=== PATIENT | female | born 1955 | race Caucasian/White ===

== ENCOUNTER → 2016-08-19 | Outpatient (CLI) | payer OTHER ==
[~2016-08-19] MED LIST: ASPIR-LOW81 MG PO; ATARAX25 MG PO; CIPRO250 MG PO; CIPROFLOXACIN500 MG PO; CYCLOBENZAPRINE10 MG PO; DAYPRO600 M1 PO; EFFEXOR-XR150 MG PO; EFFEXOR75 MG PO; ENALAPRIL2.5 MG; FLEXERIL10 MG PO; GLUCOPHAGE XR500 MG PO; HUMULIN R U-100 U/ML SC; JANUVIA100 MG; KAPIDEX60 MG; LIDOCAINE5% T; LYRICA150 MG PO; LYRICA300 MG PO; LYRICA75 MG PO; MAREPA1200 MG PO; METHOCARBAMOL500 M1 PO; NOVOLOG 70/30 M10 ML SC; NOVOLOG 701 UNIT/0.0; NOVOLOG MI100 UNIT/1 SQ; PERCOCET 325 MG1 TA7 PO; PERCOCET 325 MG1 TA8 PO; PLAVIX75 MG; QUALITY CHOICE; QUETIAPINE FUMA25 M2 PO; REGLAN5 MG; ROBAXIN-750750 MG PO; SIMVASTATIN10 MG PO; TIZANIDINE4 MG; TRAZODONE50 MG PO; TRICOR48 MG PO; ULTRAM50 MG PO; VASOTEC2.5 MG PO; VENLAFAXINE HY150 M2 PO; VENLAFAXINE75 MG PO; XANAX1 MG PO; XANAX2 MG; XANAX2 MG PO; ZOCOR40 MG; ZOFRAN ODT4 MG SL; Zofran4 MG PO
[2016-08-19 14:47] LABS: BILIRUBIN NEGATIVE (NEGATIVE); BLOOD NEGATIVE (NEGATIVE); CLARITY SL CLOUDY (CLEAR); COLOR YELLOW (YELLOW); GLUCOSE NEGATIVE (NEGATIVE); KETONE NEGATIVE (NEGATIVE); LEUKO ESTERASE 1+ (NEGATIVE); NITRITE POSITIVE (NEGATIVE); PROTEIN NEGATIVE (NEGATIVE); SPECIFIC GRAVITY 1.025 (1.005-1.030); UROBILINOGEN 0.2 E.U./dl (0.2-1.0)
[2016-08-19 14:55] LABS: BASO % 0.3 % (0.0-1.0); EOS # 0.1 10*3/uL (0.0-0.4); EOS % 0.7 % (1.0-4.0); HEMATOCRIT 41.8 % (37.0-47.0); HEMOGLOBIN 13.2 g/dl (12.0-16.0); LYMPH # 2.8 10*3/uL (1.3-4.4); LYMPH % 27.8 % (27.0-41.0); MEAN CELL VOLUME 81.8 fl (81.0-99.0); MEAN CORPUSCULAR HGB 25.8 pg (27.0-31.0); MEAN CORPUSCULAR HGB CONC 31.6 g/dl (33.0-37.0); MEAN PLATELET VOLUME 8.8 fl (9.6-12.3); MONO # 0.6 10*3/uL (0.1-1.0); MONO % 5.6 % (3.0-9.0); NEUT # 6.5 10*3/uL (2.3-7.9); NEUT % 65.3 % (47.0-73.0); PLATELET COUNT AUTOMATED 271 10*3/uL (130-400); RED BLOOD COUNT 5.11 10*6/uL (4.10-5.10); RED CELL DISTRI WIDTH 14.2 % (0-14.5)
[2016-08-19 15:02] LABS: BACTERIA 3+; RBC 0-2 rbc/hpf (0-2); WBC 21-30 wbc/hpf (0-5)
[2016-08-19 15:12] LABS: ALBUMIN 3.8 gm/dl (3.1-4.5); ALKALINE PHOSPHATASE 75 U/L (45-117); BILIRUBIN, TOTAL 0.3 mg/dl (0.2-1.0); BUN 23 mg/dl (7-24); CARBON DIOXIDE 30 mmol/L (21-32); CHLORIDE 103 mmol/L (98-107); EST GLOM FILT AFRICAN AMERICAN > 60 ml/min; GLUCOSE 170 mg/dL (65-99); POTASSIUM 4.3 mmol/L (3.5-5.1); PROTHROMBIN TIME 10.5 SECONDS (9.0-12.4); SGOT/AST 16 IU/L (3-35); SGPT/ALT 19 U/L (12-78); SODIUM 139 mmol/L (136-145); TOTAL PROTEIN 7.2 gm/dL (6.4-8.2)
== END | disposition home or self-care (01) ==
LOC: US 12:30 → LAB 12:36
PROVIDERS: Physician Assistant
DX: Z01.818 Encounter for other preprocedural examination (principal); E11.9 Type 2 diabetes mellitus without complications; R09.89 Other specified symptoms and signs involving the circulatory and respiratory systems; I73.9 Peripheral vascular disease, unspecified; M25.569 Pain in unspecified knee; M25.469 Effusion, unspecified knee; M79.609 Pain in unspecified limb; M79.89 Other specified soft tissue disorders; Z79.899 Other long term (current) drug therapy; Z51.81 Encounter for therapeutic drug level monitoring

== ENCOUNTER 2016-08-30 12:42 | Emergency (ER) | payer OTHER ==
[~2016-08-30] VITALS: Ht 152.4 cm; Wt 90.7 kg
[~2016-08-30 12:42] MED LIST changes: -ZOFRAN ODT4 MG SL
[2016-08-30 12:47] VITALS: BP 111/66
[2016-08-30 13:19] LABS: BASO % 0.2 % (0.0-1.0); EOS % 0.4 % (1.0-4.0); HEMATOCRIT 43.6 % (37.0-47.0); HEMOGLOBIN 14.1 g/dl (12.0-16.0); LYMPH # 2.2 10*3/uL (1.3-4.4); LYMPH % 24.1 % (27.0-41.0); MEAN CELL VOLUME 80.1 fl (81.0-99.0); MEAN CORPUSCULAR HGB 25.9 pg (27.0-31.0); MEAN CORPUSCULAR HGB CONC 32.3 g/dl (33.0-37.0); MEAN PLATELET VOLUME 9.1 fl (9.6-12.3); MONO # 0.5 10*3/uL (0.1-1.0); MONO % 5.4 % (3.0-9.0); NEUT # 6.3 10*3/uL (2.3-7.9); NEUT % 69.7 % (47.0-73.0); PLATELET COUNT AUTOMATED 279 10*3/uL (130-400); RED BLOOD COUNT 5.44 10*6/uL (4.10-5.10); RED CELL DISTRI WIDTH 14.4 % (0-14.5); WHITE BLOOD COUNT 9.1 10*3/uL (4.8-10.8)
[2016-08-30 13:33] LABS: ALKALINE PHOSPHATASE 77 U/L (45-117); BILIRUBIN, TOTAL 0.4 mg/dl (0.2-1.0); BUN 19 mg/dl (7-24); CARBON DIOXIDE 24 mmol/L (21-32); CHLORIDE 107 mmol/L (98-107); EST GLOM FILT AFRICAN AMERICAN > 60 ml/min; GLUCOSE 157 mg/dL (65-99); POTASSIUM 4.4 mmol/L (3.5-5.1); SGOT/AST 21 IU/L (3-35); SGPT/ALT 31 U/L (12-78); SODIUM 142 mmol/L (136-145); TOTAL PROTEIN 7.7 gm/dL (6.4-8.2)
[2016-08-30 15:06] LABS: BILIRUBIN NEGATIVE (NEGATIVE); BLOOD NEGATIVE (NEGATIVE); CLARITY CLEAR (CLEAR); COLOR YELLOW (YELLOW); GLUCOSE NEGATIVE (NEGATIVE); KETONE NEGATIVE (NEGATIVE); LEUKO ESTERASE NEGATIVE (NEGATIVE); NITRITE NEGATIVE (NEGATIVE); PH 7.5 (5.0-9.0); PROTEIN NEGATIVE (NEGATIVE)
[2016-08-30 15:14] LABS: RBC 0-2 rbc/hpf (0-2); URINE REFLEX COMMENT YES (NO)
[2016-08-30] MEDS ORDERED: ZOFRAN ODT4 MG SL (15:38)
== END 2016-08-30 15:02 | disposition home or self-care (01) ==
LOC: ED 12:42
PROVIDERS: Nurse Practitioner Family
DX: R10.9 Unspecified abdominal pain (principal); R11.2 Nausea with vomiting, unspecified; E11.9 Type 2 diabetes mellitus without complications; I10 Essential (primary) hypertension; Z86.73 Personal history of transient ischemic attack (TIA), and cerebral infarction without residual deficits; Z87.19 Personal history of other diseases of the digestive system; Z88.6 Allergy status to analgesic agent; Z88.8 Allergy status to other drugs, medicaments and biological substances; Z79.4 Long term (current) use of insulin

== ENCOUNTER 2016-12-28 10:51 | Emergency (ER) | payer OTHER ==
[~2016-12-28] VITALS: Ht 154.9 cm; Wt 90.7 kg
[~2016-12-28 10:51] MED LIST changes: +ZOFRAN ODT4 MG SL
[2016-12-28 11:03] VITALS: BP 106/58
[2016-12-28] MEDS ORDERED: ASPIRIN81 M1 PO (11:09)
[2016-12-28] MEDS ORDERED: LIDODERM 5% PATC1 EA PO (11:12)
[2016-12-28] MEDS ORDERED: TRULICITY0.75 MG/0. SC (11:23)
[2016-12-28] MEDS ORDERED: POTASSIUM GLUC550 M1 PO (11:23)
[2016-12-28] MEDS ORDERED: PRILOSEC10 MG/Pack PO (11:24)
[2016-12-28] MEDS ORDERED: VITAMIN D50000 UNIT PO (11:24)
[2016-12-28] MEDS ORDERED: EVZIO2 MG/0.4 M IJ (11:25)
== END 2016-12-28 13:28 | disposition home or self-care (01) ==
LOC: ED 10:51
DX: G89.29 Other chronic pain (principal); M54.5 Low back pain; Z88.6 Allergy status to analgesic agent; Z88.8 Allergy status to other drugs, medicaments and biological substances; Z79.82 Long term (current) use of aspirin; Z90.49 Acquired absence of other specified parts of digestive tract

== ENCOUNTER → 2017-01-26 | Outpatient (CLI) | payer OTHER ==
[~2017-01-26] MED LIST changes: +ASPIRIN81 M1 PO; +EVZIO2 MG/0.4 M IJ; +LIDODERM 5% PATC1 EA PO; +POTASSIUM GLUC550 M1 PO; +PRILOSEC10 MG/Pack PO; +TRULICITY0.75 MG/0. SC; +VITAMIN D50000 UNIT PO
== END | disposition home or self-care (01) ==
LOC: MAMMO 13:36
DX: Z12.31 Encounter for screening mammogram for malignant neoplasm of breast (principal)

== ENCOUNTER → 2017-02-16 | Outpatient (CLI) | payer OTHER ==
[2017-02-16 10:27] LABS: BASO % 0.4 % (0.0-1.0); EOS # 0.2 10*3/uL (0.0-0.4); HEMATOCRIT 39.8 % (37.0-47.0); HEMOGLOBIN 12.5 g/dl (12.0-16.0); LYMPH # 2.6 10*3/uL (1.3-4.4); LYMPH % 33.1 % (27.0-41.0); MEAN CELL VOLUME 79.4 fl (81.0-99.0); MEAN CORPUSCULAR HGB CONC 31.4 g/dl (33.0-37.0); MEAN PLATELET VOLUME 8.4 fl (9.6-12.3); MONO # 0.5 10*3/uL (0.1-1.0); MONO % 5.8 % (3.0-9.0); NEUT # 4.7 10*3/uL (2.3-7.9); NEUT % 58.6 % (47.0-73.0); PLATELET COUNT AUTOMATED 236 10*3/uL (130-400); RED BLOOD COUNT 5.01 10*6/uL (4.10-5.10); RED CELL DISTRI WIDTH 14.5 % (0-14.5)
[2017-02-16 10:56] LABS: ALBUMIN 3.4 gm/dl (3.1-4.5); ALKALINE PHOSPHATASE 81 U/L (45-117); BILIRUBIN, TOTAL 0.4 mg/dl (0.2-1.0); BUN 19 mg/dl (7-24); CARBON DIOXIDE 27 mmol/L (21-32); CHLORIDE 105 mmol/L (98-107); EST GLOM FILT AFRICAN AMERICAN > 60 ml/min; GLUCOSE 134 mg/dL (65-99); SGOT/AST 25 IU/L (3-35); SGPT/ALT 31 U/L (12-78); SODIUM 141 mmol/L (136-145)
[2017-02-16 11:58] LABS: HEMOGLOBIN A1c 7.4 % (4.8-5.6)
== END | disposition home or self-care (01) ==
LOC: LAB 10:08
PROVIDERS: Family Medicine
DX: E55.9 Vitamin D deficiency, unspecified (principal); Z79.899 Other long term (current) drug therapy

== ENCOUNTER → 2017-03-11 | Outpatient (CLI) | payer OTHER | END | disposition home or self-care (01) | LOC: MRI 11:00 | DX: M54.16 Radiculopathy, lumbar region (principal) ==

== ENCOUNTER → 2017-05-26 | Outpatient (CLI) | payer OTHER | END | disposition home or self-care (01) | LOC: RAD 10:28 | DX: M25.532 Pain in left wrist (principal) ==

== ENCOUNTER → 2017-06-09 | Outpatient (CLI) | payer OTHER | END | disposition home or self-care (01) | LOC: MRI 06-06 13:00 | DX: M48.02 Spinal stenosis, cervical region (principal); M50.220 Other cervical disc displacement, mid-cervical region, unspecified level; M54.12 Radiculopathy, cervical region; M25.78 Osteophyte, vertebrae ==

== ENCOUNTER 2017-10-12 04:07 | Emergency (ER) | payer OTHER ==
[~2017-10-12] VITALS: Ht 157.4 cm; Wt 90.7 kg
--- NOTE | ~2017-10-12 | EKG ---
[place], [place] ELECTROCARDIOGRAM REPORT NAME: ODILON CONN UNIT #: [id number] ROOM: DOCTOR: ENOC GRAHAM MD BIRTHDATE: [birth year] DOS: 10/12/2017 TIME: 0422 hours. Normal sinus rhythm at 67 beats per minute. The tracing is normal. No previous tracing is available for comparison. ENOC GRAHAM MD CM:EKGRPT:ELECTROCARDIOGRAM REPORT [id number] ENOC GRAHAM MD
[2017-10-12 04:34] LABS: BASO % 0.3 % (0.0-1.0); EOS # 0.1 10*3/uL (0.0-0.4); EOS % 0.8 % (1.0-4.0); HEMATOCRIT 42.1 % (37.0-47.0); HEMOGLOBIN 13.2 g/dl (12.0-16.0); LYMPH # 2.7 10*3/uL (1.3-4.4); LYMPH % 41.8 % (27.0-41.0); MEAN CELL VOLUME 85.6 fl (81.0-99.0); MEAN CORPUSCULAR HGB 26.8 pg (27.0-31.0); MEAN CORPUSCULAR HGB CONC 31.4 g/dl (33.0-37.0); MEAN PLATELET VOLUME 8.9 fl (9.6-12.3); MONO # 0.6 10*3/uL (0.1-1.0); MONO % 9.5 % (3.0-9.0); NEUT % 46.8 % (47.0-73.0); PLATELET COUNT AUTOMATED 184 10*3/uL (130-400); RED BLOOD COUNT 4.92 10*6/uL (4.10-5.10); RED CELL DISTRI WIDTH 15.5 % (0-14.5); WHITE BLOOD COUNT 6.4 10*3/uL (4.8-10.8)
[2017-10-12 04:44] LABS: ACT PARTIAL THROMBO TIME 21.1 SECONDS (20.8-31.5); INTERNATIONAL NORM RATIO 0.9 (2.0-3.5)
[2017-10-12 04:51] LABS: ALBUMIN 3.3 gm/dl (3.1-4.5); ALKALINE PHOSPHATASE 90 U/L (45-117); BUN 19 mg/dl (7-24); CHLORIDE 106 mmol/L (98-107); CREATININE 0.74 mg/dL (0.55-1.02); SGOT/AST 32 IU/L (3-35); SGPT/ALT 50 U/L (12-78); SODIUM 141 mmol/L (136-145); TOTAL PROTEIN 6.5 gm/dL (6.4-8.2)
[2017-10-12 04:55] LABS: TROPONIN I < 0.015 ng/ml (<0.045)
[2017-10-12 05:00] VITALS: BP 132/52
== END 2017-10-12 05:27 | disposition short-term general hospital (02) ==
LOC: ED 04:07
PROVIDERS: Emergency Medicine Emergency Medical Services
DX: I63.9 Cerebral infarction, unspecified (principal); E11.9 Type 2 diabetes mellitus without complications; Z79.4 Long term (current) use of insulin; Z88.6 Allergy status to analgesic agent; Z88.8 Allergy status to other drugs, medicaments and biological substances; Z79.899 Other long term (current) drug therapy

== ENCOUNTER → 2017-11-14 | Outpatient (CLI) | payer OTHER | END | disposition home or self-care (01) | LOC: RAD 11:54 | DX: M47.26 Other spondylosis with radiculopathy, lumbar region (principal) ==

== ENCOUNTER → 2017-11-15 | Outpatient (CLI) | payer OTHER ==
[2017-11-15 09:04] LABS: ALBUMIN 3.5 gm/dl (3.1-4.5); ALKALINE PHOSPHATASE 101 U/L (45-117); BUN 20 mg/dl (7-24); CHLORIDE 102 mmol/L (98-107); CHOLESTEROL 260 mg/dL (<200); CREATININE 1.03 mg/dL (0.55-1.02); HDL CHOLESTEROL 47 mg/dl (40-60); LDL CHOLESTEROL 180 mg/dL (9-159); POTASSIUM 4.3 mmol/L (3.5-5.1); SGOT/AST 14 IU/L (3-35); SGPT/ALT 20 U/L (12-78); SODIUM 139 mmol/L (136-145); TOTAL PROTEIN 7.3 gm/dL (6.4-8.2); TRIGLYCERIDES 164 mg/dl (<150); VLDL CHOLESTEROL 33 mg/dL (6-40)
[2017-11-15 09:16] LABS: CPK 201 U/L (26-192)
== END | disposition home or self-care (01) ==
LOC: LAB 08:06
PROVIDERS: Family Medicine
DX: I10 Essential (primary) hypertension (principal); E78.00 Pure hypercholesterolemia, unspecified; E11.9 Type 2 diabetes mellitus without complications; G47.00 Insomnia, unspecified; E55.9 Vitamin D deficiency, unspecified

== ENCOUNTER → 2017-12-22 | Outpatient (CLI) | payer OTHER | END | disposition home or self-care (01) | LOC: MRI 13:00 | DX: M70.61 Trochanteric bursitis, right hip (principal); M70.62 Trochanteric bursitis, left hip; M76.01 Gluteal tendinitis, right hip; M76.02 Gluteal tendinitis, left hip ==

== ENCOUNTER 2018-02-27 14:55 | Inpatient (IN) | payer OTHER ==
[~2018-02-27] VITALS: Ht 154.9 cm; Wt 103.1 kg
--- NOTE | ~2018-02-27 | CON ---
[place], [place] REPORT OF CONSULTATION NAME: IZZY CONNLINE UNIT #: [id number] ROOM: 407 DOCTOR: MCKINLEY COLLINS MD, FACC BIRTHDATE: [birth year] DOS: 02/27/2018 CARDIOLOGY CONSULTATION Dictating for Dr. Su. Dr. Su will perform the Lexiscan Cardiolite tomorrow morning to evaluate for ischemic heart disease. HISTORY OF PRESENT ILLNESS: The patient came in with recurrent progressive chest discomfort, precordial, and some exertional dyspnea. Dr. Frederick seen the patient in the office and sent her to the hospital and Dr. Ordoñez admitted the patient for Dr. Frederick. The patient was on antihypertensive medication and dyslipidemia medications. There is no recent stress test. Quit smoking 10 years ago. ALLERGIES: THE PATIENT HAS MULTIPLE ALLERGIES INCLUDING ACETAMINOPHEN AND HYDROCODONE, HYDROMORPHONE, MORPHINE, PROPOXYPHENE. MEDICATIONS: The patient currently on oxycodone, Lidoderm 5% patch, Lyrica, and Trulicity. PAST MEDICAL HISTORY: The patient has history of CVA, but recovered, chronic back pain and migraine. PAST SURGICAL HISTORY: The patient has a partial stomach removal for the ulcer, hysterectomy, gallbladder surgery, and back surgery. FAMILY HISTORY: Congestive heart failure, diabetes, coronary artery disease, and hypertension. PHYSICAL EXAMINATION: VITAL SIGNS: Stable. GENERAL: Alert, not in any acute. HEENT: Unremarkable. NECK: There is no jugular venous distention noted. No carotid bruits. LUNGS: No rales heard. HEART: S1, S2 regular. ABDOMEN: Soft. SKIN: Color is good, not diaphoretic. EXTREMITIES: No cyanosis and 1+ ankle edema. NEUROLOGIC: No stroke. No syncope. DIAGNOSIS: Chest pain, evaluating for ischemic heart disease. Workup is in progress. PLAN: Scheduled for the Lexiscan to Dr. Su to evaluate for ischemic heart disease. [place], [place] REPORT OF CONSULTATION NAME: FABIENODILON UNIT #: [id number] ROOM: 407 DOCTOR: MCKINLEY COLLINS MD, FACC BIRTHDATE: [birth year] MCKINLEY COLLINS MD CM:CONSTR:REPORT OF CONSULTATION 1914 03/13/18 1019 interface
--- NOTE | ~2018-02-27 | WRIGHTHP ---
[place], [place] PATIENT HISTORY AND PHYSICAL EXAM NAME[id number] UNIT #: [id number] ROOM: 407 DOCTOR: DANNY LARSON MD BIRTHDATE: [birth year] DOS: 02/27/2018 HISTORY OF PRESENT ILLNESS: This 62-year-old patient comes in with complaints of left-sided chest pain. The patient had pain 2 days ago and was afraid to go to sleep, so she decided to come into the Emergency Room yesterday. She does not have any shortness of breath, does not have any fever or chills, does not have any abdominal pain, nausea or any emesis. Does not have any cough. PAST MEDICAL HISTORY: Significant for: 1. Previous admissions for chest pain with negative cardiac workup. 2. Type 2 diabetes mellitus, insulin-dependent. 3. History of CVA. 4. History of chronic back pain from spinal stenosis. 5. History of mixed hyperlipidemia. MEDICATIONS: She is on fluvoxamine 50 daily, lidocaine patch, methocarbamol 750 b.i.d., Percocet 5 q. 6, pregabalin 200 t.i.d., simvastatin 20 daily, zolpidem 10 at bedtime, Trulicity 1.5 weekly, NovoLog 70/30 sixty units b.i.d. SOCIAL HISTORY: Nonsmoker, she has history of smoking about 8 years ago. Denies using any alcohol. PHYSICAL EXAMINATION: GENERAL: She is awake and alert and oriented. VITAL SIGNS: Blood pressure is 155/60, pulse of 118, respirations 20, temperature 97.8. LUNGS: Clear. HEART: Regular. ABDOMEN: Obese, soft, nontender. EXTREMITIES: Without any edema. ASSESSMENT AND PLAN: 1. Precordial chest pain, rule out myocardial infarction. Protocol has been ordered. Echocardiogram, cardiology consultation and a stress test will be ordered. 2. Type 2 diabetes mellitus, insulin-dependent. Blood sugars are controlled, in the low 100s. 3. Chronic back pain. Continue home medications. If the stress comes back negative, the plan is to discharge to home today. [place], [place] PATIENT HISTORY AND PHYSICAL EXAM NAME: ODILON CONN UNIT #: [id number] ROOM: 407 DOCTOR: DANNY LARSON MD BIRTHDATE: [birth year] DANNY LARSON MD CM:HISPHYS:PATIENT HISTORY AND PHYSICAL EXAMINATION [id number] DANNY LARSON MD 02/28/18 0935 interface
--- NOTE | ~2018-02-27 | EKG ---
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
--- NOTE | ~2018-02-27 | ST ---
[place], [place] EXERCISE STRESS TEST REPORT NAME: ODILON CONN UNIT #: [id number] ROOM: 407 DOCTOR: MARGARETTE HARRELL MD BIRTHDATE: [birth year] DOS: 02/28/2018 LEXISCAN PORTION OF THE LEXISCAN CARDIOLITE Baseline cardiogram, sinus tachycardia with poor R-wave progression, 0.4 mg of Lexiscan, duration of 10 seconds. With Lexiscan, the patient did not develop any chest discomfort, did have shortness of breath. Blood pressure and heart rate response was normal. FINAL IMPRESSION: No EKG changes with Lexiscan. No chest pain with Lexiscan. Positive shortness of breath with Lexiscan. Blood pressure and heart rate normal. Nuclear images will be reported separately. MARGARETTE HARRELL MD CM:STRESS:EXERCISE STRESS TEST REPORT [id number] MARGARETTE HARRELL MD
--- NOTE | ~2018-02-27 | EKG ---
[place], [place] ELECTROCARDIOGRAM REPORT NAME: ODILON CONN UNIT #: [id number] ROOM: 407 DOCTOR: YESENIA DRAFT REPORT BIRTHDATE: [birth year] [facility] Test Date: 2018-02-27 Test Time: 18:02:51 Pat Name: ODILON CONN Department: Room: Gender: F Admitted Attorneys: : 1955 Requested By: BOGDAN PURVIS Order Number: [id number] Reading MD: Dov Hernández MD Measurements Intervals [place] Rate: 90 P: 51 SD: 174 QRS: -2 QRSD: 74 T: 35 QT: 399 QTc: 489 Interpretive Statements Sinus rhythm Borderline prolonged QT interval Electronically Signed On 02-28-2018 9:42:07 PDT by Dov Hernández MD CM:EKGRPT:ELECTROCARDIOGRAM REPORT [id number] BOGDAN PURVIS EPIPHANY DRAFT REPORT BOGDAN PURVIS
--- NOTE | ~2018-02-27 | EKG ---
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
[~2018-02-27 14:55] MED LIST changes: -LIDODERM 5% PATC1 EA PO; +LIDODERM1 EACH INTRADERM; -PERCOCET 325 MG1 TA7 PO; +PERCOCET 5-3251 EACH PO
[2018-02-27 14:58] VITALS: BP 167/69
[2018-02-27 15:20] LABS: BASO % 0.3 % (0.0-1.0); EOS # 0.1 10*3/uL (0.0-0.4); EOS % 1.2 % (1.0-4.0); HEMOGLOBIN 12.5 g/dl (12.0-16.0); LYMPH # 3.5 10*3/uL (1.3-4.4); LYMPH % 35.3 % (27.0-41.0); MEAN CELL VOLUME 81.5 fl (81.0-99.0); MEAN CORPUSCULAR HGB 25.5 pg (27.0-31.0); MEAN CORPUSCULAR HGB CONC 31.3 g/dl (33.0-37.0); MEAN PLATELET VOLUME 8.6 fl (9.6-12.3); MONO # 0.6 10*3/uL (0.1-1.0); MONO % 6.4 % (3.0-9.0); NEUT # 5.6 10*3/uL (2.3-7.9); NEUT % 56.5 % (47.0-73.0); PLATELET COUNT AUTOMATED 231 10*3/uL (130-400); RED BLOOD COUNT 4.91 10*6/uL (4.10-5.10); RED CELL DISTRI WIDTH 14.6 % (0-14.5)
[2018-02-27 15:28] VITALS: BP 114/61
[2018-02-27 15:29] LABS: ACT PARTIAL THROMBO TIME 21.3 SECONDS (20.8-31.5); INTERNATIONAL NORM RATIO 0.9 (2.0-3.5)
[2018-02-27 15:45] LABS: ALBUMIN 3.7 gm/dl (3.1-4.5); ALKALINE PHOSPHATASE 103 U/L (45-117); BUN 23 mg/dl (7-24); CHLORIDE 100 mmol/L (98-107); CREATININE 0.85 mg/dL (0.55-1.02); POTASSIUM 4.1 mmol/L (3.5-5.1); SGOT/AST 10 IU/L (3-35); SGPT/ALT 20 U/L (12-78); SODIUM 137 mmol/L (136-145)
[2018-02-27 15:47] LABS: TROPONIN I < 0.015 ng/ml (<0.045)
[2018-02-27 16:12] VITALS: BP 115/68
[2018-02-27 16:44] VITALS: BP 137/56
[2018-02-27] MEDS ORDERED: FLUVOXAMINE50 MG PO (17:19)
[2018-02-27] MEDS ORDERED: ROBAXIN-750750 MG PO (17:19)
[2018-02-27] MEDS ORDERED: AMBIEN10 M1 PO (17:20)
[2018-02-27] MEDS ORDERED: SIMVASTATIN20 MG PO (17:20)
[2018-02-27] MEDS ORDERED: TRULICITY1.5 MG/0.5 SC (17:55)
[2018-02-27 20:00] VITALS: BP 144/64
[2018-02-28] VITALS: BP 155/60
[2018-02-28 09:55] VITALS: BP 131/53
[2018-02-28 12:00] VITALS: BP 140/66
== END 2018-02-28 13:37 | disposition home or self-care (01) | DRG 313 ==
LOC: ED 14:55 → EDHOLD 16:05 → 4E 16:29
PROVIDERS: Nurse Practitioner Family
PROC: 4A02XM4 Measurement of Cardiac Total Activity, External Approach (ICD-10-PCS; principal; 2018-02-28)
PROC: 3E073KZ Introduction of Other Diagnostic Substance into Coronary Artery, Percutaneous Approach (ICD-10-PCS; principal; 2018-02-28)
DX: R07.2 Precordial pain (principal); E11.8 Type 2 diabetes mellitus with unspecified complications; E78.2 Mixed hyperlipidemia; G89.29 Other chronic pain; M54.5 Low back pain; G43.909 Migraine, unspecified, not intractable, without status migrainosus; Z79.4 Long term (current) use of insulin; Z86.73 Personal history of transient ischemic attack (TIA), and cerebral infarction without residual deficits; Z87.891 Personal history of nicotine dependence; Z88.8 Allergy status to other drugs, medicaments and biological substances; Z88.6 Allergy status to analgesic agent; Z79.899 Other long term (current) drug therapy; Z87.440 Personal history of urinary (tract) infections; Z90.710 Acquired absence of both cervix and uterus; Z82.49 Family history of ischemic heart disease and other diseases of the circulatory system; Z83.3 Family history of diabetes mellitus

== ENCOUNTER → 2018-06-28 | Outpatient (CLI) | payer OTHER ==
[~2018-06-28] MED LIST changes: +AMBIEN10 M1 PO; +FLUVOXAMINE50 MG PO; +SIMVASTATIN20 MG PO; +TRULICITY1.5 MG/0.5 SC
[2018-06-28 08:02] LABS: HEMATOCRIT 40.6 % (37.0-47.0); HEMOGLOBIN 12.7 g/dl (12.0-16.0); MEAN CELL VOLUME 81.7 fl (81.0-99.0); MEAN CORPUSCULAR HGB 25.6 pg (27.0-31.0); MEAN CORPUSCULAR HGB CONC 31.3 g/dl (33.0-37.0); MEAN PLATELET VOLUME 8.6 fl (9.6-12.3); RED BLOOD COUNT 4.97 10*6/uL (4.10-5.10); RED CELL DISTRI WIDTH 14.1 % (0-14.5); WHITE BLOOD COUNT 5.6 10*3/uL (4.8-10.8)
[2018-06-28 08:33] LABS: CHOLESTEROL 191 mg/dL (<200); CPK 130 U/L (26-192); HDL CHOLESTEROL 31 mg/dl (40-60); LDL CHOLESTEROL 117 mg/dL (9-159); TRIGLYCERIDES 215 mg/dl (<150); VLDL CHOLESTEROL 43 mg/dL (6-40)
[2018-06-28 08:35] LABS: ALBUMIN 3.3 gm/dl (3.1-4.5); ALKALINE PHOSPHATASE 76 U/L (45-117); BILIRUBIN, DIRECT < 0.1 mg/dL (0.0-0.2); BUN 12 mg/dl (7-24); CHLORIDE 107 mmol/L (98-107); CREATININE 0.68 mg/dL (0.55-1.02); PHOSPHOROUS 3.3 mg/dL (2.5-4.9); POTASSIUM 3.9 mmol/L (3.5-5.1); SGOT/AST 15 IU/L (3-35); SGPT/ALT 17 U/L (12-78); SODIUM 142 mmol/L (136-145); TOTAL PROTEIN 6.7 gm/dL (6.4-8.2)
== END | disposition home or self-care (01) ==
LOC: LAB 07:33
PROVIDERS: Family Medicine; Physician Assistant Medical
DX: E78.00 Pure hypercholesterolemia, unspecified (principal); E11.9 Type 2 diabetes mellitus without complications; K21.9 Gastro-esophageal reflux disease without esophagitis; E55.9 Vitamin D deficiency, unspecified; M19.90 Unspecified osteoarthritis, unspecified site; Z79.899 Other long term (current) drug therapy

== ENCOUNTER 2018-09-05 04:54 | Emergency (ER) | payer OTHER ==
[~2018-09-05] VITALS: Ht 160 cm; Wt 90.7 kg
[2018-09-05 09:05] VITALS: BP 99/46
== END 2018-09-05 09:15 | disposition short-term general hospital (02) ==
LOC: ED 04:54
DX: S82.831A Other fracture of upper and lower end of right fibula, initial encounter for closed fracture (principal); S92.321A Displaced fracture of second metatarsal bone, right foot, initial encounter for closed fracture; S92.331A Displaced fracture of third metatarsal bone, right foot, initial encounter for closed fracture; S92.311A Displaced fracture of first metatarsal bone, right foot, initial encounter for closed fracture; S92.341A Displaced fracture of fourth metatarsal bone, right foot, initial encounter for closed fracture; G89.29 Other chronic pain; G62.9 Polyneuropathy, unspecified; E11.9 Type 2 diabetes mellitus without complications; Z90.710 Acquired absence of both cervix and uterus; Z98.890 Other specified postprocedural states; Z88.6 Allergy status to analgesic agent; Z88.5 Allergy status to narcotic agent; Z86.73 Personal history of transient ischemic attack (TIA), and cerebral infarction without residual deficits; Z88.8 Allergy status to other drugs, medicaments and biological substances; Z79.4 Long term (current) use of insulin; Z79.899 Other long term (current) drug therapy; W18.49XA Other slipping, tripping and stumbling without falling, initial encounter; Y93.89 Activity, other specified; Y92.89 Other specified places as the place of occurrence of the external cause; Y99.9 Unspecified external cause status

== ENCOUNTER → 2018-11-14 | Outpatient (CLI) | payer OTHER ==
[2018-11-14 08:16] LABS: HEMATOCRIT 44.6 % (37.0-47.0); HEMOGLOBIN 14.3 g/dl (12.0-16.0); MEAN CELL VOLUME 79.5 fl (81.0-99.0); MEAN CORPUSCULAR HGB 25.5 pg (27.0-31.0); MEAN CORPUSCULAR HGB CONC 32.1 g/dl (33.0-37.0); MEAN PLATELET VOLUME 9.3 fl (9.6-12.3); RED BLOOD COUNT 5.61 10*6/uL (4.10-5.10); RED CELL DISTRI WIDTH 13.4 % (0-14.5); WHITE BLOOD COUNT 8.5 10*3/uL (4.8-10.8)
[2018-11-14 08:44] LABS: ALBUMIN 3.6 gm/dl (3.1-4.5); ALKALINE PHOSPHATASE 122 U/L (45-117); BUN 19 mg/dl (7-24); CHLORIDE 100 mmol/L (98-107); CHOLESTEROL 225 mg/dL (<200); CREATININE 0.88 mg/dL (0.55-1.02); HDL CHOLESTEROL 40 mg/dl (40-60); LDL CHOLESTEROL 131 mg/dL (9-159); POTASSIUM 4.7 mmol/L (3.5-5.1); SGOT/AST 8 IU/L (3-35); SGPT/ALT 20 U/L (12-78); SODIUM 137 mmol/L (136-145); TOTAL PROTEIN 7.6 gm/dL (6.4-8.2); TRIGLYCERIDES 271 mg/dl (<150); VLDL CHOLESTEROL 54 mg/dL (6-40)
[2018-11-14 08:45] LABS: CPK 85 U/L (26-192)
== END | disposition home or self-care (01) ==
LOC: LAB 07:54
PROVIDERS: Family Medicine
DX: E11.9 Type 2 diabetes mellitus without complications (principal); I10 Essential (primary) hypertension; M19.90 Unspecified osteoarthritis, unspecified site; E55.9 Vitamin D deficiency, unspecified; E78.00 Pure hypercholesterolemia, unspecified

== ENCOUNTER → 2019-02-19 | Outpatient (CLI) | payer OTHER ==
[2019-02-19 08:00] LABS: HEMATOCRIT 42.2 % (37.0-47.0); HEMOGLOBIN 13.3 g/dl (12.0-16.0); MEAN CELL VOLUME 84.6 fl (81.0-99.0); MEAN CORPUSCULAR HGB 26.7 pg (27.0-31.0); MEAN CORPUSCULAR HGB CONC 31.5 g/dl (33.0-37.0); MEAN PLATELET VOLUME 9.3 fl (9.6-12.3); RED BLOOD COUNT 4.99 10*6/uL (4.10-5.10); RED CELL DISTRI WIDTH 13.8 % (0-14.5); WHITE BLOOD COUNT 7.7 10*3/uL (4.8-10.8)
[2019-02-19 08:29] LABS: ALBUMIN 3.7 gm/dl (3.1-4.5); BUN 18 mg/dl (7-24); CHLORIDE 107 mmol/L (98-107); CHOLESTEROL 212 mg/dL (<200); CPK 101 U/L (26-192); CREATININE 0.81 mg/dL (0.55-1.02); HDL CHOLESTEROL 40 mg/dl (40-60); LDL CHOLESTEROL 130 mg/dL (9-159); POTASSIUM 3.9 mmol/L (3.5-5.1); SGOT/AST 14 IU/L (3-35); SGPT/ALT 23 U/L (12-78); SODIUM 142 mmol/L (136-145); TRIGLYCERIDES 212 mg/dl (<150); VLDL CHOLESTEROL 42 mg/dL (6-40)
[2019-02-19 10:59] LABS: ALKALINE PHOSPHATASE 85 U/L (45-117)
== END | disposition home or self-care (01) ==
LOC: LAB 07:32
PROVIDERS: Family Medicine
DX: E78.00 Pure hypercholesterolemia, unspecified (principal); I10 Essential (primary) hypertension; E11.9 Type 2 diabetes mellitus without complications; E55.9 Vitamin D deficiency, unspecified

== ENCOUNTER → 2019-06-18 | Outpatient (CLI) | payer OTHER ==
[2019-06-18 08:27] LABS: HEMATOCRIT 45.2 % (37.0-47.0); HEMOGLOBIN 14.1 g/dl (12.0-16.0); MEAN CELL VOLUME 87.9 fl (81.0-99.0); MEAN CORPUSCULAR HGB 27.4 pg (27.0-31.0); MEAN CORPUSCULAR HGB CONC 31.2 g/dl (33.0-37.0); MEAN PLATELET VOLUME 9.1 fl (9.6-12.3); RED BLOOD COUNT 5.14 10*6/uL (4.10-5.10); RED CELL DISTRI WIDTH 16.1 % (0-14.5); WHITE BLOOD COUNT 7.5 10*3/uL (4.8-10.8)
[2019-06-18 08:53] LABS: ALBUMIN 3.2 gm/dl (3.1-4.5); BUN 19 mg/dl (7-24); CHLORIDE 104 mmol/L (98-107); CHOLESTEROL 267 mg/dL (<200); CREATININE 0.78 mg/dL (0.55-1.02); POTASSIUM 4.4 mmol/L (3.5-5.1); SGOT/AST 14 IU/L (3-35); SGPT/ALT 34 U/L (12-78); SODIUM 139 mmol/L (136-145); TRIGLYCERIDES 115 mg/dl (<150); VLDL CHOLESTEROL 23 mg/dL (6-40)
[2019-06-18 08:54] LABS: ALKALINE PHOSPHATASE 78 U/L (45-117); CPK 80 U/L (26-192); HDL CHOLESTEROL 71 mg/dl (40-60); LDL CHOLESTEROL 173 mg/dL (9-159); TOTAL PROTEIN 6.6 gm/dL (6.4-8.2)
== END | disposition home or self-care (01) ==
LOC: LAB 07:36
PROVIDERS: Family Medicine
DX: E11.9 Type 2 diabetes mellitus without complications (principal); E78.00 Pure hypercholesterolemia, unspecified; E55.9 Vitamin D deficiency, unspecified; M19.90 Unspecified osteoarthritis, unspecified site

== ENCOUNTER 2019-08-17 15:07 | Emergency (ER) | payer OTHER ==
[~2019-08-17] VITALS: Ht 157.4 cm; Wt 81.6 kg
[2019-08-17 15:09] VITALS: BP 106/55
== END 2019-08-17 17:34 | disposition home or self-care (01) ==
LOC: ED 15:07
DX: R51 Headache (principal); R09.81 Nasal congestion; I10 Essential (primary) hypertension; E11.9 Type 2 diabetes mellitus without complications; Z88.6 Allergy status to analgesic agent; Z79.899 Other long term (current) drug therapy; Z86.73 Personal history of transient ischemic attack (TIA), and cerebral infarction without residual deficits

== ENCOUNTER → 2020-01-22 | Outpatient (CLI) | payer OTHER ==
[~2020-01-22] MED LIST changes: +DOXYCYCLINE100 M3 PO; +PREDNISONE10 MG PO
== END | disposition home or self-care (01) ==
LOC: RAD 14:38
DX: R06.02 Shortness of breath (principal); L98.8 Other specified disorders of the skin and subcutaneous tissue; Z86.73 Personal history of transient ischemic attack (TIA), and cerebral infarction without residual deficits

== ENCOUNTER 2020-01-25 13:16 | Emergency (ER) | payer OTHER ==
[~2020-01-25] VITALS: Ht 162.5 cm; Wt 113.4 kg
[~2020-01-25 13:16] MED LIST changes: -DOXYCYCLINE100 M3 PO; -PREDNISONE10 MG PO
[2020-01-25 13:46] LABS: BASO % 0.4 % (0.0-1.0); EOS % 0.4 % (1.0-4.0); HEMATOCRIT 41.7 % (37.0-47.0); LYMPH # 2.6 10*3/uL (1.3-4.4); LYMPH % 35.4 % (27.0-41.0); MEAN CELL VOLUME 91.6 fl (81.0-99.0); MEAN CORPUSCULAR HGB 29.2 pg (27.0-31.0); MEAN CORPUSCULAR HGB CONC 31.9 g/dl (33.0-37.0); MEAN PLATELET VOLUME 8.6 fl (9.6-12.3); MONO # 0.5 10*3/uL (0.1-1.0); MONO % 6.6 % (3.0-9.0); NEUT % 55.7 % (47.0-73.0); PLATELET COUNT AUTOMATED 194 10*3/uL (130-400); RED BLOOD COUNT 4.55 10*6/uL (4.10-5.10); RED CELL DISTRI WIDTH 13.4 % (0-14.5); WHITE BLOOD COUNT 7.3 10*3/uL (4.8-10.8)
[2020-01-25 13:52] VITALS: BP 122/78
[2020-01-25 13:55] LABS: ACT PARTIAL THROMBO TIME 22.5 SECONDS (20.0-32.1); INTERNATIONAL NORM RATIO 0.9 (2.0-3.5)
[2020-01-25 14:06] LABS: ALBUMIN 3.2 gm/dl (3.1-4.5); ALKALINE PHOSPHATASE 54 U/L (45-117); BUN 17 mg/dl (7-24); CHLORIDE 106 mmol/L (98-107); CREATININE 0.96 mg/dL (0.55-1.02); POTASSIUM 3.8 mmol/L (3.5-5.1); SGOT/AST 14 IU/L (3-35); SGPT/ALT 35 U/L (12-78); SODIUM 139 mmol/L (136-145); TOTAL PROTEIN 6.6 gm/dL (6.4-8.2)
[2020-01-25 14:08] LABS: TROPONIN I < 0.015 ng/ml (<0.045)
[2020-01-25] MEDS ORDERED: PREDNISONE10 MG PO (17:29)
[2020-01-25] MEDS ORDERED: DOXYCYCLINE100 M3 PO (17:29)
== END 2020-01-25 17:37 | disposition home or self-care (01) ==
LOC: ED 13:16
PROVIDERS: Internal Medicine
DX: J18.9 Pneumonia, unspecified organism (principal); I10 Essential (primary) hypertension; E11.9 Type 2 diabetes mellitus without complications; Z88.6 Allergy status to analgesic agent; Z88.8 Allergy status to other drugs, medicaments and biological substances; Z79.4 Long term (current) use of insulin; Z79.899 Other long term (current) drug therapy; Z86.73 Personal history of transient ischemic attack (TIA), and cerebral infarction without residual deficits

== ENCOUNTER → 2020-03-12 | Outpatient (CLI) | payer OTHER ==
[~2020-03-12] MED LIST changes: +DOXYCYCLINE100 M3 PO; +PREDNISONE10 MG PO
[2020-03-12 07:48] LABS: HEMATOCRIT 44.7 % (37.0-47.0); MEAN CELL VOLUME 86.8 fl (81.0-99.0); MEAN CORPUSCULAR HGB CONC 32.2 g/dl (33.0-37.0); MEAN PLATELET VOLUME 9.3 fl (9.6-12.3); RED BLOOD COUNT 5.15 10*6/uL (4.10-5.10); RED CELL DISTRI WIDTH 13.2 % (0-14.5); WHITE BLOOD COUNT 10.7 10*3/uL (4.8-10.8)
[2020-03-12 08:14] LABS: ALBUMIN 3.3 gm/dl (3.1-4.5); BUN 25 mg/dl (7-24); CHLORIDE 106 mmol/L (98-107); POTASSIUM 4.7 mmol/L (3.5-5.1); SODIUM 137 mmol/L (136-145)
[2020-03-12 08:17] LABS: ALKALINE PHOSPHATASE 81 U/L (45-117); CHOLESTEROL 275 mg/dL (<200); CPK 61 U/L (26-192); CREATININE 0.82 mg/dL (0.55-1.02); HDL CHOLESTEROL 50 mg/dl (40-60); LDL CHOLESTEROL 176 mg/dL (9-159); SGOT/AST 9 IU/L (3-35); SGPT/ALT 20 U/L (12-78); TOTAL PROTEIN 7.1 gm/dL (6.4-8.2); TRIGLYCERIDES 246 mg/dl (<150); VLDL CHOLESTEROL 49 mg/dL (6-40)
== END | disposition home or self-care (01) ==
LOC: LAB 07:06
PROVIDERS: Family Medicine
DX: E11.9 Type 2 diabetes mellitus without complications (principal); I10 Essential (primary) hypertension; E78.00 Pure hypercholesterolemia, unspecified; Z79.899 Other long term (current) drug therapy

== ENCOUNTER 2020-04-23 17:54 | Emergency (ER) | payer OTHER ==
[~2020-04-23] VITALS: Wt 90.7 kg
[2020-04-23 18:35] LABS: BASO % 0.2 % (0.0-1.0); EOS # 0.1 10*3/uL (0.0-0.4); HEMATOCRIT 42.5 % (37.0-47.0); LYMPH # 2.9 10*3/uL (1.3-4.4); LYMPH % 24.3 % (27.0-41.0); MEAN CELL VOLUME 86.7 fl (81.0-99.0); MEAN CORPUSCULAR HGB 26.9 pg (27.0-31.0); MEAN CORPUSCULAR HGB CONC 31.1 g/dl (33.0-37.0); MEAN PLATELET VOLUME 9.3 fl (9.6-12.3); MONO # 0.8 10*3/uL (0.1-1.0); MONO % 7.1 % (3.0-9.0); NEUT # 7.9 10*3/uL (2.3-7.9); NEUT % 66.8 % (47.0-73.0); PLATELET COUNT AUTOMATED 231 10*3/uL (130-400); RED CELL DISTRI WIDTH 13.7 % (0-14.5); WHITE BLOOD COUNT 11.9 10*3/uL (4.8-10.8)
[2020-04-23 18:50] LABS: ALBUMIN 3.4 gm/dl (3.1-4.5); ALKALINE PHOSPHATASE 61 U/L (45-117); BUN 21 mg/dl (7-24); CHLORIDE 107 mmol/L (98-107); CREATININE 0.75 mg/dL (0.55-1.02); POTASSIUM 3.8 mmol/L (3.5-5.1); SGOT/AST 11 IU/L (3-35); SGPT/ALT 20 U/L (12-78); SODIUM 140 mmol/L (136-145); TOTAL PROTEIN 6.7 gm/dL (6.4-8.2)
[2020-04-23 22:21] VITALS: BP 128/51
[2020-04-24] MEDS ORDERED: CYCLOBENZAPRINE10 MG PO (00:09)
== END 2020-04-24 00:27 | disposition home or self-care (01) ==
LOC: ED 17:54
PROVIDERS: Emergency Medicine
DX: M54.31 Sciatica, right side (principal); Z88.6 Allergy status to analgesic agent; Z88.8 Allergy status to other drugs, medicaments and biological substances; Z79.899 Other long term (current) drug therapy

== ENCOUNTER 2020-05-02 13:22 | Emergency (ER) | payer OTHER ==
[~2020-05-02] VITALS: Ht 160 cm; Wt 90.7 kg
[2020-05-02 13:27] VITALS: BP 96/42
== END 2020-05-02 17:18 | disposition home or self-care (01) ==
LOC: ED 13:22
DX: S82.841A Displaced bimalleolar fracture of right lower leg, initial encounter for closed fracture (principal); Z88.8 Allergy status to other drugs, medicaments and biological substances; Z79.899 Other long term (current) drug therapy; X58.XXXA Exposure to other specified factors, initial encounter; Y93.89 Activity, other specified; Y92.89 Other specified places as the place of occurrence of the external cause; Y99.8 Other external cause status

== ENCOUNTER → 2020-05-07 | Outpatient (CLI) | payer OTHER | END | disposition home or self-care (01) | LOC: MRI 12:48 | PROVIDERS: ATTEND Nurse Practitioner Family | DX: M16.11 Unilateral primary osteoarthritis, right hip (principal); M51.16 Intervertebral disc disorders with radiculopathy, lumbar region; M48.061 Spinal stenosis, lumbar region without neurogenic claudication; M48.07 Spinal stenosis, lumbosacral region ==

== ENCOUNTER → 2020-05-09 | Outpatient (CLI) | payer OTHER ==
[2020-05-09 16:41] LABS: BASO % 0.2 % (0.0-1.0); EOS # 0.1 10*3/uL (0.0-0.4); HEMATOCRIT 43.3 % (37.0-47.0); LYMPH # 2.6 10*3/uL (1.3-4.4); MEAN CELL VOLUME 85.7 fl (81.0-99.0); MEAN CORPUSCULAR HGB 26.5 pg (27.0-31.0); MEAN CORPUSCULAR HGB CONC 30.9 g/dl (33.0-37.0); MONO # 0.6 10*3/uL (0.1-1.0); MONO % 7.3 % (3.0-9.0); PLATELET COUNT AUTOMATED 315 10*3/uL (130-400); RED BLOOD COUNT 5.05 10*6/uL (4.10-5.10); RED CELL DISTRI WIDTH 13.9 % (0-14.5); WHITE BLOOD COUNT 8.3 10*3/uL (4.8-10.8)
[2020-05-09 17:03] LABS: POTASSIUM 3.9 mmol/L (3.5-5.1)
== END | disposition home or self-care (01) ==
LOC: LAB 02:43 → COVID19 02:43
PROVIDERS: ATTEND Podiatrist
DX: Z01.818 Encounter for other preprocedural examination (principal); Z20.828 Contact with and (suspected) exposure to other viral communicable diseases

== ENCOUNTER → 2020-05-13 | Outpatient (CLI) | payer OTHER ==
[~2020-05-13] MED LIST changes: +CRESTOR5 MG PO; +ENALAPRIL20 MG PO; +PHENERGAN25 M3 PO; -SIMVASTATIN20 MG PO; +XARELTO10 MG PO
== END | disposition home or self-care (01) ==
LOC: US 05:57
PROVIDERS: ATTEND Podiatrist Foot & Ankle Surgery
DX: I73.9 Peripheral vascular disease, unspecified (principal); E11.9 Type 2 diabetes mellitus without complications; R09.89 Other specified symptoms and signs involving the circulatory and respiratory systems

== ENCOUNTER → 2020-05-15 | Day surgery (SDC) | payer OTHER ==
[2020-05-09 15:02] VITALS: BP 136/67
[~2020-05-15] VITALS: Ht 160 cm; Wt 90.7 kg
[2020-05-15 13:31] VITALS: BP 127/70
[2020-05-15 17:25] VITALS: BP 105/56
[2020-05-15 17:40] VITALS: BP 130/50
[2020-05-15 17:55] VITALS: BP 117/50
[2020-05-15 18:10] VITALS: BP 115/43
[2020-05-15 18:25] VITALS: BP 128/53
== END | disposition home or self-care (01) ==
LOC: SDC 05-09 14:00
PROVIDERS: ATTEND Podiatrist
DX: S82.851A Displaced trimalleolar fracture of right lower leg, initial encounter for closed fracture (principal); S93.431A Sprain of tibiofibular ligament of right ankle, initial encounter; I10 Essential (primary) hypertension; K21.9 Gastro-esophageal reflux disease without esophagitis; E11.9 Type 2 diabetes mellitus without complications; M19.90 Unspecified osteoarthritis, unspecified site; E66.9 Obesity, unspecified; Z68.35 Body mass index [BMI] 35.0-35.9, adult; X58.XXXA Exposure to other specified factors, initial encounter; Y93.9 Activity, unspecified; Y92.89 Other specified places as the place of occurrence of the external cause; Y99.8 Other external cause status; Z87.891 Personal history of nicotine dependence; Z98.890 Other specified postprocedural states; Z79.899 Other long term (current) drug therapy; Z79.84 Long term (current) use of oral hypoglycemic drugs; Z83.3 Family history of diabetes mellitus; Z82.49 Family history of ischemic heart disease and other diseases of the circulatory system; Z82.3 Family history of stroke

== ENCOUNTER 2020-05-28 13:42 | Inpatient (IN) | payer OTHER ==
[~2020-05-28] VITALS: Ht 162.5 cm; Wt 96.5 kg
[~2020-05-28 13:42] MED LIST changes: +CIPRO500 MG PO; +FLAGYL500 MG PO
[2020-05-28 13:57] VITALS: BP 141/65
[2020-05-28 14:31] LABS: BASO % 0.2 % (0.0-1.0); EOS % 0.5 % (1.0-4.0); HEMATOCRIT 41.5 % (37.0-47.0); LYMPH # 1.7 10*3/uL (1.3-4.4); LYMPH % 20.5 % (27.0-41.0); MEAN CELL VOLUME 82.3 fl (81.0-99.0); MEAN CORPUSCULAR HGB 26.2 pg (27.0-31.0); MEAN CORPUSCULAR HGB CONC 31.8 g/dl (33.0-37.0); MONO # 0.6 10*3/uL (0.1-1.0); MONO % 7.3 % (3.0-9.0); NEUT # 5.9 10*3/uL (2.3-7.9); NEUT % 70.5 % (47.0-73.0); PLATELET COUNT AUTOMATED 294 10*3/uL (130-400); RED BLOOD COUNT 5.04 10*6/uL (4.10-5.10); RED CELL DISTRI WIDTH 14.7 % (0-14.5); WHITE BLOOD COUNT 8.4 10*3/uL (4.8-10.8)
[2020-05-28 14:45] LABS: INTERNATIONAL NORM RATIO 1.1 (2.0-3.5)
[2020-05-28 14:47] LABS: ALBUMIN 2.9 gm/dl (3.1-4.5); BUN 9 mg/dl (7-24); CHLORIDE 100 mmol/L (98-107); CREATININE 0.84 mg/dL (0.55-1.02); POTASSIUM 3.3 mmol/L (3.5-5.1); SGOT/AST 34 IU/L (3-35); SGPT/ALT 23 U/L (12-78); SODIUM 137 mmol/L (136-145); TOTAL PROTEIN 6.9 gm/dL (6.4-8.2)
[2020-05-28 14:49] LABS: ALKALINE PHOSPHATASE 81 U/L (45-117)
[2020-05-28 14:58] LABS: TROPONIN I < 0.015 ng/ml (<0.045)
--- NOTE | 2020-05-28 16:37 | NUR ---
PT TRANSFERRED TO BEDSIDE COMMODE. GAIT STEADY. TOLERATED WELL. DID NOT VOID. TRANSFERRED BACK TO BED. POSITIONED FOR COMFORT. NOTIFIED CT THAT PT IS ABLE TO BE TRANSFERRED TO CT AT THIS TIME. NOTIFIED INPATIENT NURSE THAT PT IS GOING TO CT PRIOR TO TRANSPORT TO FLOOR.
--- NOTE | 2020-05-28 16:50 | NUR ---
TO CT. CONDITION STABLE.
--- NOTE | 2020-05-28 17:03 | NUR ---
RETURNED FROM CT. CONDITION STABLE.
--- NOTE | 2020-05-28 17:29 | NUR ---
DR PA REQUESTED CATHED URINE SPECIMEN. SEVERAL ATTEMPTS MADE BY TWO DIFFERENT NURSES TO OBTAIN A CATHED URINE SPECIMEN. UNSUCCESSFUL. PT REFUSES ANY MORE ATTEMPTS. PT IS AMBULATORY AND CONTINENT, BUT WAS UNABLE TO PROVIDE A SPECIMEN IN THE ED.
--- NOTE | 2020-05-28 17:53 | NUR ---
PODIATRY RESIDENT IN TO SPEAK WITH AND ASSESS THE PATIENT.
[2020-05-28 18:00] VITALS: BP 138/84
--- NOTE | 2020-05-28 18:00 | NUR ---
A 64YO FEMALE, admitted to , under the services of DANNY Ford MD with a diagnosis of SINUS TACHYCARDIA/CONFUSION/ABDOMINAL PAIN. Chief complaint is UPPER ABDOMINAL PAIN AND TENDERNESS. Patient arrived via stretcher from ER. Monitor applied. Initial assessment completed. Vital signs taken and recorded. DANNY FORD MD notified of admission to the unit. Orders received. See assessment for past medical history, medications and allergies. Patient and/or family oriented to unit. [facility] visitation policy reviewed. Clothing/patient valuable form completed. GENEVA SHARP
[2020-05-28] MEDS ORDERED: LYRICA200 M1 PO (18:49)
[2020-05-28 20:00] VITALS: BP 128/52
--- NOTE | 2020-05-28 20:00 | NUR ---
Patient lying in bed, confused at times, having trouble finding words to explain what position she wants in bed. Reoriented patient about call light and bed alarm. Patient moans at times, but doesnt state she in pain. Still awaiting for urine, patient was incont a small bm. Patient left with call ligth in reach, and bed alarm on.
--- NOTE | 2020-05-28 23:00 | NUR ---
ASSUMED CARE FOR THIS PT AT THIS TIME. PT ALERT TO PERSON ONLY. REORIENTATION INEFFECTIVE. BED IN LOW POSITION W/WHEELS LOCKED AND ALARM ON. CALL LIGHT IN REACH.
[2020-05-29] VITALS: BP 124/51
--- NOTE | 2020-05-29 04:00 | NUR ---
PT RESTING QUEITLY IN BED W/EYES CLOSED. NO S/S OF DISTRESS NOTED. BED IN LOW POSITION W/WHEELS LOCKED AND ALARM ON. CALL LIGHT IN REACH.
[2020-05-29 06:26] LABS: BASO % 0.3 % (0.0-1.0); EOS # 0.1 10*3/uL (0.0-0.4); EOS % 1.1 % (1.0-4.0); HEMATOCRIT 39.2 % (37.0-47.0); LYMPH # 2.6 10*3/uL (1.3-4.4); LYMPH % 36.4 % (27.0-41.0); MEAN CELL VOLUME 84.7 fl (81.0-99.0); MEAN CORPUSCULAR HGB 26.1 pg (27.0-31.0); MEAN CORPUSCULAR HGB CONC 30.9 g/dl (33.0-37.0); MEAN PLATELET VOLUME 8.9 fl (9.6-12.3); MONO # 0.6 10*3/uL (0.1-1.0); MONO % 8.9 % (3.0-9.0); NEUT # 3.7 10*3/uL (2.3-7.9); NEUT % 52.2 % (47.0-73.0); PLATELET COUNT AUTOMATED 304 10*3/uL (130-400); RED BLOOD COUNT 4.63 10*6/uL (4.10-5.10); RED CELL DISTRI WIDTH 14.9 % (0-14.5); WHITE BLOOD COUNT 7.1 10*3/uL (4.8-10.8)
[2020-05-29 06:47] LABS: BUN 8 mg/dl (7-24); CHLORIDE 106 mmol/L (98-107); POTASSIUM 3.4 mmol/L (3.5-5.1); SODIUM 141 mmol/L (136-145)
[2020-05-29 06:48] LABS: CREATININE 0.62 mg/dL (0.55-1.02)
--- NOTE | 2020-05-29 06:55 | NUR ---
ECHO DONE LAST ADMISSION. MILANA LARSON CANCEL THIS ECHO ORDER.
--- NOTE | 2020-05-29 07:11 | NUR ---
PT PLACED ON BEDPAN THIS AM PER PT REQUEST. PT STATES SHE FEELS LIKE SHE HAS TO GO AND HER KIDNEYS ARE HURTING. PT DID NOT VOID. BRIEF DRY. BLADDER SCANNED FOR 735ML. WILL NOTIFY
--- NOTE | 2020-05-29 07:13 | NUR ---
DR. LARSON NOTIFIED OF NO VOID THIS SHIFT AND BLADDER SCANNED FOR 735ML. PLACE INDWELLING F/C AND SEND UA.
[2020-05-29 08:00] VITALS: BP 145/56
--- NOTE | 2020-05-29 08:25 | NUR ---
DR. LARSON ATTEMPTED TO INSERT JARA CATHETER AND WAS UNSUCCESSFUL DUE TO MEETING RESISTANCE DURING INSERTION. RN ON PREVIOUS SHIFT WAS ALSO UNSUCCESSFUL WITH INSERTION. PATIENT ASSISTED TO BSC AND URINATED, URINE MIXED WITH BM, SO SAMPLE FOR UA/UC NOT SENT. DR. LARSON AWARE.
--- NOTE | 2020-05-29 09:00 | NUR ---
Kettle Fry Cook Operator in to talk to patient. Patient states lives at home with . There are 0 steps in the home. Physician: Dr. Yang Frederick Pharmacy: [facility] Home health services: [facility] Patient's level of ADLs: MINIMAL ASSIST Patient has working utilities: yes DME: walker, wheelchair, motorized wheelchair Follow-up physician's appointment after d/c: will be made by the hospitalist nurse director upon discharge Does patient want to access PORTAL?: no Discharge plan discussed with patient. She lives at home with her . She states she is independent in her ADLs and either ambulates with a walker or gets around in a wheelchair. She does also have a motorized scooter. She states her does everything needed. He does the house cleaning and cooking. Discussed short term rehab and home health care services and she declines. CM will continue to follow for any discharge planning needs. When medically stable she will be discharged to home. She states her will provide transportation on discharge. BEENA MERLOS
[2020-05-29 10:30] VITALS: BP 110/52
--- NOTE | 2020-05-29 10:35 | NUR ---
PATIENT UP TO BSC, VOIDING WITHOUT DIFFICULTY, C/O DIARRHEA TODAY.
[2020-05-29 12:00] VITALS: BP 143/50
--- NOTE | 2020-05-29 14:41 | NUR ---
PT C/O DIARRHEA, MEDICATED WITH LOMOTIL PER PT REQUEST. SEE EMAR. CALL LIGHT IN REACH.
--- NOTE | 2020-05-29 15:29 | NUR ---
MEDICATED WITH PRN PO PERCOCET FOR BILATERAL LEGS PAIN.
[2020-05-29 16:00] VITALS: BP 144/50
--- NOTE | 2020-05-29 16:14 | NUR ---
PRN PO PERCOCET EFFECTIVE, PER PATIENT.
--- NOTE | 2020-05-29 16:27 | NUR ---
PHYSICAL THERAPY Nursing screen received and chart reviewed. PT evaluation received. Will follow to complete PT evaluation. Thank you. Yolande Eldridge,PT,DPT
--- NOTE | 2020-05-29 17:38 | NUR ---
PATIENT INSTRUCTED TO NOT EAT OR DRINK UNTIL CTA OF HEAD COMPLETED TONIGHT.
[2020-05-29 20:00] VITALS: BP 137/45
[2020-05-29 21:49] LABS: BILIRUBIN 1+ (Negative); BLOOD Negative (Negative); CLARITY Turbid (Clear); COLOR Dark Yellow (Yellow); GLUCOSE Negative (Negative); KETONE Trace (Negative); LEUKO ESTERASE 1+ (Negative); NITRITE Negative (Negative); SPECIFIC GRAVITY 1.025 (1.001-1.030)
[2020-05-29 21:57] LABS: WBC 16-20 wbc/hpf (0-5)
[2020-05-29 21:58] LABS: BACTERIA TRACE; RBC 0-2 rbc/hpf (0-2); YEAST 4+
--- NOTE | 2020-05-29 22:37 | NUR ---
PRN PERCOCET GIVEN FOR PT COMPLAINTS OF RIGHT ANKLE/FOOT PAIN RATING IT 9/10. CALL LIGHT WITHIN REACH, WILL MONITOR
--- NOTE | 2020-05-29 23:30 | NUR ---
PATIENT STATES PAIN IS SOMEWHAT BETTER, RATES PAIN 4/10. CALL LIGHT WITHIN REACH, WILL MONITOR
--- NOTE | 2020-05-29 23:32 | NUR ---
SPOKE WITH DR. DAMON AT THIS TIME. PATIENT INQUIRING ABOUT A SLEEPING PILL, BUT PATIENT CAME IN WITH CONFUSION. ORDER RECIEVED FOR 5MG OF AMBIEN NOW
--- NOTE | 2020-05-29 23:53 | NUR ---
ONE TIME DOSE OF AMBIEN ADMINSTERED AT THIS TIME. CALL LIGHT WITHIN REACH, BED ALARM INTACT, WILL MONITOR
[2020-05-30] VITALS: BP 110/48; BP 112/44
--- NOTE | 2020-05-30 00:30 | NUR ---
ONE TIME DOSE OF AMBIEN APPEARS EFFECTIVE, PT SLEEPING. SNORING RESPIRATIONS. CALL LIGHT WITHIN REACH, BED ALARM INTACT, WILL MONITOR
--- NOTE | 2020-05-30 00:35 | NUR ---
24 HR chart check completed.
[2020-05-30 05:00] VITALS: BP 112/52
--- NOTE | 2020-05-30 08:30 | NUR ---
CM in to see patient. Discussed short term rehab vs home health care services. She declines rehab. She is agreeable to home health care services. Dr. Ordoñez notified. Asked if CM could reach out to her to discuss SNF vs home health and she is agreeable. Will reach out to her .
--- NOTE | 2020-05-30 09:03 | NUR ---
Spoke to , Que, regarding discharge planning. Discussed short term rehab vs home health care services. He states he takes care of everything at home and wants her to return home. Discussed home health services of nurse and therapy. He is agreeable. He would like a nurse to come in and check her blood pressure. Patient has a previous referral to [facility] but patient came back into the hospital. Notified Dr. Ordoñez.
--- NOTE | 2020-05-30 09:25 | NUR ---
Faxed home health order, face to face, and clinical to [facility]
--- NOTE | 2020-05-30 11:56 | NUR ---
DR LARSON NOTIFIED OF [facility] RADIOLOGY RESULTS.
[2020-05-30 12:00] VITALS: BP 131/53
--- NOTE | 2020-05-30 12:05 | NUR ---
NOTIFIED [facility] RADIOLOGY THAT MY PT DID NOT HAVE A RIGHT CVC. PER DR LARSON SHE WOULD "LIKE THE RADIOLOGIST TO READ IT AGAIN".
--- NOTE | 2020-05-30 14:19 | NUR ---
PERCOSET GIVEN PER FOR C/O PAIN TO LOWER BACK/ R HIP.03/24.
--- NOTE | 2020-05-30 14:27 | NUR ---
Nutritional Support Services Note: Pt has a healing surgical incision uner right leg cast. Ht.5'4 Wt.213# IBW 110-130. She is 83# above upper limit of IBW range. Appetite is good for meals, she receives an 1800cal low Na diet as ordered. Continue to encourage good po intake of meals. Discussed need for adequate protein. Will follow as needed. Judy Gordillo Rdn Ld
--- NOTE | 2020-05-30 15:15 | NUR ---
PHYSICAL THERAPY Eval received per MD notes CTA showed possible R ICA stenosis awaiting carotid doppler per results 05/30 non occlusive RIJ vein thrombus. Will await for MD to assess/recomendations prior to seeing pt, follow as medically appropriate Sheila Saleem PT
--- NOTE | 2020-05-30 15:16 | NUR ---
Critical UE/Doppler findings for non occlusive Right IJV thrombus. Will await further orders/treatment before proceeding with OT evaluation. Thank you. Hoa Guzman OTR/L
[2020-05-30 16:00] VITALS: BP 99/50
[2020-05-30 20:00] VITALS: BP 137/45
--- NOTE | 2020-05-30 20:00 | NUR ---
RESTING IN BED; VOICES NO C/O AT THIS TIME. CALL LIGHT WITHIN REACH.
--- NOTE | 2020-05-30 21:06 | NUR ---
MEDICATED WITH PERCOCET FOR C/O PAIN RATED AN 8/10.
--- NOTE | 2020-05-30 22:10 | NUR ---
MEDICATED WITH ANAIS PER PT'S REQUEST/M.D. ORDERS.
--- NOTE | 2020-05-30 23:00 | NUR ---
RESTING IN BED WITH EYES CLOSED; PAIN MEDICATION/AMBIEN APPARENTLY EFFECTIVE. CALL LIGHT WITHIN REACH.
[2020-05-31] VITALS: BP 144/47
--- NOTE | 2020-05-31 05:30 | NUR ---
C/O RIGHT FOOT & RIGHT HIP PAIN RATED AN 7/10. MEDICATED WITH 2 PERCOCETS PER PT'S REQUEST & M.D. ORDERS.
[2020-05-31 06:19] LABS: BASO % 0.4 % (0.0-1.0); EOS # 0.3 10*3/uL (0.0-0.4); EOS % 3.7 % (1.0-4.0); HEMATOCRIT 33.6 % (37.0-47.0); LYMPH # 2.7 10*3/uL (1.3-4.4); LYMPH % 40.2 % (27.0-41.0); MEAN CELL VOLUME 87.5 fl (81.0-99.0); MEAN CORPUSCULAR HGB CONC 29.8 g/dl (33.0-37.0); MEAN PLATELET VOLUME 9.4 fl (9.6-12.3); MONO # 0.5 10*3/uL (0.1-1.0); MONO % 7.3 % (3.0-9.0); NEUT # 3.2 10*3/uL (2.3-7.9); NEUT % 47.5 % (47.0-73.0); PLATELET COUNT AUTOMATED 279 10*3/uL (130-400); RED BLOOD COUNT 3.84 10*6/uL (4.10-5.10); RED CELL DISTRI WIDTH 15.2 % (0-14.5); WHITE BLOOD COUNT 6.7 10*3/uL (4.8-10.8)
[2020-05-31 06:34] LABS: BUN 8 mg/dl (7-24); CHLORIDE 110 mmol/L (98-107); POTASSIUM 4.3 mmol/L (3.5-5.1); SODIUM 143 mmol/L (136-145)
[2020-05-31 08:00] VITALS: BP 133/50
--- NOTE | 2020-05-31 08:29 | NUR ---
NOTIFIED DR CHICAS'S RESIDENT OF NEW CONSULT TO SEE PT TODAY. PT C/O PAIN TO RIGHT HIP AND TO TOP OF RIGHT FOOT.WHICH IS NEW PAIN. PT ALSO HAS C/O DUE TO "CAST FALLING APART".PER RESIDENT SHE WILL SEE PT PRIOR TO D/C.
[2020-05-31] MEDS ORDERED: TRAD5TAB1 PO (08:32)
[2020-05-31] MEDS ORDERED: CARDIZEM CD120 M2 PO (08:32)
[2020-05-31] MEDS ORDERED: CARDIZEM30 MG PO ×2 (08:32)
--- NOTE | 2020-05-31 09:06 | NUR ---
PHYSICAL THERAPY PT SCREEN COMPLETED TODAY ON LEVEL 5: PATIENT IS INDEPENDENT WITH ALL FUNCTIONAL MOBILITY AND NO PT SERVICES ARE INDICATED AT THIS TIME. SHE HAS BEEN AT HOME MANAGING WITH CAST WITH HUSBANDS ASSISTANCE SINCE SURGERY. PER NURSING BEING D/C'D HOME TODAY WITH . THANK YOU FOR REFERRAL SHAMAR HOLGUIN PT
--- NOTE | 2020-05-31 11:13 | NUR ---
DR YOUNG ROUNDED AND SEEN PT AND REINFORCED CAST ON RIGHT LOWER EXTREMITY. PT TO F/U WITH DR CHICAS ON WED FOR REPLACEMENT OF SAID CAST TO RLE.
--- NOTE | 2020-05-31 12:27 | NUR ---
PERCOSET X2 TABS GIVEN PER MAR FOR C/O PAIN TO RLE,04/24.
--- NOTE | 2020-05-31 12:36 | NUR ---
Discharge instructions reviewed with patient/family. Patient receptive and verbalizes understanding. Follow-up care arranged. Written instructions given to patient/family. GARIMA RAMIREZ
--- NOTE | 2020-06-02 07:27 | NUR ---
Faxed discharge instructions and summary to [facility]
== END 2020-05-31 12:36 | disposition home health service (06) | DRG 77 ==
LOC: ED 13:42 → EDHOLD 15:54 → 5E 15:54
PROVIDERS: Emergency Medicine; ADMIT Internal Medicine; ATTEND Internal Medicine
DX: I67.4 Hypertensive encephalopathy (principal); I67.83 Posterior reversible encephalopathy syndrome; I82.C12 Acute embolism and thrombosis of left internal jugular vein; I67.89 Other cerebrovascular disease; E87.6 Hypokalemia; I10 Essential (primary) hypertension; E11.65 Type 2 diabetes mellitus with hyperglycemia; G89.29 Other chronic pain; R10.9 Unspecified abdominal pain; R00.0 Tachycardia, unspecified; M54.5 Low back pain; E78.5 Hyperlipidemia, unspecified; R62.7 Adult failure to thrive; Z88.5 Allergy status to narcotic agent; Z86.73 Personal history of transient ischemic attack (TIA), and cerebral infarction without residual deficits; Z88.6 Allergy status to analgesic agent; Z88.8 Allergy status to other drugs, medicaments and biological substances; I25.2 Old myocardial infarction; Z90.49 Acquired absence of other specified parts of digestive tract; Z90.710 Acquired absence of both cervix and uterus; Z83.3 Family history of diabetes mellitus; Z82.49 Family history of ischemic heart disease and other diseases of the circulatory system; Z68.36 Body mass index [BMI] 36.0-36.9, adult; Z71.0 Person encountering health services to consult on behalf of another person

== ENCOUNTER → 2020-07-09 | Outpatient (CLI) | payer OTHER ==
[~2020-07-09] MED LIST changes: +CARDIZEM CD120 M2 PO; +CARDIZEM30 MG PO; +LYRICA200 M1 PO; +TRAD5TAB1 PO
[2020-07-09 07:55] LABS: HEMATOCRIT 43.7 % (37.0-47.0); MEAN CELL VOLUME 82.8 fl (81.0-99.0); MEAN CORPUSCULAR HGB 25.4 pg (27.0-31.0); MEAN CORPUSCULAR HGB CONC 30.7 g/dl (33.0-37.0); MEAN PLATELET VOLUME 9.2 fl (9.6-12.3); RED BLOOD COUNT 5.28 10*6/uL (4.10-5.10); RED CELL DISTRI WIDTH 14.2 % (0-14.5)
[2020-07-09 08:10] LABS: ALBUMIN 3.5 gm/dl (3.1-4.5); ALKALINE PHOSPHATASE 88 U/L (45-117); BUN 11 mg/dl (7-24); CHLORIDE 103 mmol/L (98-107); CHOLESTEROL 132 mg/dL (<200); CPK 62 U/L (26-192); CREATININE 0.69 mg/dL (0.55-1.02); HDL CHOLESTEROL 33 mg/dl (40-60); LDL CHOLESTEROL 29 mg/dL (9-159); POTASSIUM 3.6 mmol/L (3.5-5.1); SGOT/AST 16 IU/L (3-35); SGPT/ALT 18 U/L (12-78); SODIUM 137 mmol/L (136-145); TOTAL PROTEIN 7.3 gm/dL (6.4-8.2); TRIGLYCERIDES 352 mg/dl (<150); VLDL CHOLESTEROL 70 mg/dL (6-40)
== END | disposition home or self-care (01) ==
LOC: LAB 07:05
PROVIDERS: ATTEND Family Medicine
DX: E11.9 Type 2 diabetes mellitus without complications (principal); E78.00 Pure hypercholesterolemia, unspecified; I10 Essential (primary) hypertension

== ENCOUNTER → 2020-10-03 | Outpatient (CLI) | payer OTHER ==
[~2020-10-03] MED LIST changes: +SYMPROIC0.2 MG PO
[2020-10-03 14:29] LABS: BASO % 0.3 % (0.0-1.0); EOS % 0.1 % (1.0-4.0); HEMATOCRIT 45.6 % (37.0-47.0); LYMPH # 3.3 10*3/uL (1.3-4.4); LYMPH % 23.7 % (27.0-41.0); MEAN CELL VOLUME 78.9 fl (81.0-99.0); MEAN CORPUSCULAR HGB 24.6 pg (27.0-31.0); MEAN CORPUSCULAR HGB CONC 31.1 g/dl (33.0-37.0); MEAN PLATELET VOLUME 8.9 fl (9.6-12.3); MONO # 0.8 10*3/uL (0.1-1.0); MONO % 5.7 % (3.0-9.0); NEUT # 9.6 10*3/uL (2.3-7.9); NEUT % 69.6 % (47.0-73.0); PLATELET COUNT AUTOMATED 305 10*3/uL (130-400); RED BLOOD COUNT 5.78 10*6/uL (4.10-5.10); RED CELL DISTRI WIDTH 15.5 % (0-14.5); WHITE BLOOD COUNT 13.8 10*3/uL (4.8-10.8)
[2020-10-03 14:42] LABS: POTASSIUM 4.7 mmol/L (3.5-5.1)
== END | disposition home or self-care (01) ==
LOC: LAB 13:17
PROVIDERS: ATTEND Podiatrist
DX: Z47.2 Encounter for removal of internal fixation device (principal)

== ENCOUNTER → 2020-10-03 | Outpatient (CLI) | payer OTHER | END | disposition home or self-care (01) | LOC: COVID19 13:03 | PROVIDERS: ATTEND Podiatrist Foot & Ankle Surgery | DX: Z01.812 Encounter for preprocedural laboratory examination (principal); Z20.822 Contact with and (suspected) exposure to COVID-19 ==

== ENCOUNTER → 2020-10-08 | Day surgery (SDC) | payer OTHER ==
[2020-10-03 13:45] VITALS: BP 144/56
[~2020-10-08] VITALS: Ht 157.4 cm; Wt 90.7 kg
[2020-10-08 06:36] VITALS: BP 128/59
[2020-10-08 07:58] VITALS: BP 143/68
[2020-10-08 08:15] VITALS: BP 150/62
[2020-10-08 08:30] VITALS: BP 140/60
[2020-10-08 08:54] VITALS: BP 130/76
== END | disposition home or self-care (01) ==
LOC: SDC 10-03 13:15
PROVIDERS: ATTEND Podiatrist
DX: T84.84XA Pain due to internal orthopedic prosthetic devices, implants and grafts, initial encounter (principal); E78.5 Hyperlipidemia, unspecified; E11.9 Type 2 diabetes mellitus without complications; Z98.890 Other specified postprocedural states; Z79.899 Other long term (current) drug therapy; Y83.8 Other surgical procedures as the cause of abnormal reaction of the patient, or of later complication, without mention of misadventure at the time of the procedure; Z86.73 Personal history of transient ischemic attack (TIA), and cerebral infarction without residual deficits; Z88.5 Allergy status to narcotic agent; Z88.8 Allergy status to other drugs, medicaments and biological substances

== ENCOUNTER → 2021-01-08 | Outpatient (CLI) | payer OTHER ==
[2021-01-08 07:59] LABS: HEMATOCRIT 42.6 % (37.0-47.0); MEAN CELL VOLUME 87.1 fl (81.0-99.0); MEAN CORPUSCULAR HGB 28.2 pg (27.0-31.0); MEAN CORPUSCULAR HGB CONC 32.4 g/dl (33.0-37.0); MEAN PLATELET VOLUME 8.6 fl (9.6-12.3); RED BLOOD COUNT 4.89 10*6/uL (4.10-5.10); RED CELL DISTRI WIDTH 14.7 % (0-14.5); WHITE BLOOD COUNT 12.5 10*3/uL (4.8-10.8)
[2021-01-08 08:32] LABS: ALBUMIN 3.4 gm/dl (3.1-4.5); BUN 23 mg/dl (7-24); CHLORIDE 100 mmol/L (98-107); CHOLESTEROL 288 mg/dL (<200); CREATININE 0.81 mg/dL (0.55-1.02); POTASSIUM 4.6 mmol/L (3.5-5.1); SGOT/AST 5 IU/L (3-35); SGPT/ALT 22 U/L (12-78); SODIUM 135 mmol/L (136-145); TRIGLYCERIDES 277 mg/dl (<150)
[2021-01-08 08:38] LABS: ALKALINE PHOSPHATASE 84 U/L (45-117); CPK 81 U/L (26-192); FREE T4 0.92 ng/dl (0.76-1.46); LDL CHOLESTEROL 179 mg/dL (9-159); THYROID STIM HORMONE (HS) 0.285 uIU/ml (0.358-4.75); TOTAL PROTEIN 7.2 gm/dL (6.4-8.2)
[2021-01-08 08:46] LABS: VITAMIN D, 25-HYDROXY 27.3 ng/mL (30-100)
[2021-01-09 05:06] LABS: HEP B CORE AB, IGM Negative (Negative); HEPATITIS B SURFACE AG Negative (Negative); HEPATITIS C VIRUS ANTIBODY <0.1 s/co (0.0-0.9)
== END | disposition home or self-care (01) ==
LOC: LAB 07:37
PROVIDERS: ATTEND Family Medicine
DX: I10 Essential (primary) hypertension (principal); E55.9 Vitamin D deficiency, unspecified; E11.9 Type 2 diabetes mellitus without complications; E78.00 Pure hypercholesterolemia, unspecified; R53.83 Other fatigue

== ENCOUNTER → 2021-03-12 | Outpatient (CLI) | payer OTHER ==
[2021-03-12 14:55] LABS: ALBUMIN 3.4 gm/dl (3.1-4.5); BUN 12 mg/dl (7-24)
[2021-03-12 15:00] LABS: ALKALINE PHOSPHATASE 93 U/L (45-117); CREATININE 0.55 mg/dL (0.55-1.02); SGOT/AST 24 IU/L (3-35); SGPT/ALT 20 U/L (12-78); TOTAL PROTEIN 7.1 gm/dL (6.4-8.2)
== END | disposition home or self-care (01) ==
LOC: LAB 12:50
PROVIDERS: ATTEND Nurse Practitioner Gerontology
DX: Z79.899 Other long term (current) drug therapy (principal)

== ENCOUNTER → 2021-03-25 | Outpatient (CLI) | payer OTHER | END | disposition home or self-care (01) | LOC: CARD 00:14 | PROVIDERS: ATTEND Internal Medicine Cardiovascular Disease | DX: Z01.810 Encounter for preprocedural cardiovascular examination (principal); R00.0 Tachycardia, unspecified; R53.81 Other malaise; I10 Essential (primary) hypertension ==

== ENCOUNTER → 2021-04-23 | Outpatient (CLI) | payer OTHER ==
[2021-04-23 09:12] LABS: BASO # 0.1 10*3/uL (0.0-0.1); BASO % 0.6 % (0.0-1.0); EOS # 0.2 10*3/uL (0.0-0.4); EOS % 2.4 % (1.0-4.0); HEMATOCRIT 43.7 % (37.0-47.0); LYMPH # 4.3 10*3/uL (1.3-4.4); LYMPH % 50.9 % (27.0-41.0); MEAN CELL VOLUME 84.9 fl (81.0-99.0); MEAN CORPUSCULAR HGB 26.2 pg (27.0-31.0); MEAN CORPUSCULAR HGB CONC 30.9 g/dl (33.0-37.0); MEAN PLATELET VOLUME 9.3 fl (9.6-12.3); MONO # 0.7 10*3/uL (0.1-1.0); MONO % 7.9 % (3.0-9.0); NEUT # 3.2 10*3/uL (2.3-7.9); NEUT % 37.8 % (47.0-73.0); PLATELET COUNT AUTOMATED 315 10*3/uL (130-400); RED BLOOD COUNT 5.15 10*6/uL (4.10-5.10); RED CELL DISTRI WIDTH 14.1 % (0-14.5); WHITE BLOOD COUNT 8.4 10*3/uL (4.8-10.8)
[2021-04-23 09:24] LABS: ACT PARTIAL THROMBO TIME 30.5 SECONDS (20.0-32.1)
[2021-04-23 09:46] LABS: BUN 14 mg/dl (7-24); CHLORIDE 104 mmol/L (98-107); CREATININE 0.66 mg/dL (0.55-1.02); POTASSIUM 4.3 mmol/L (3.5-5.1); SODIUM 139 mmol/L (136-145)
== END | disposition home or self-care (01) ==
LOC: LAB 08:40
PROVIDERS: ATTEND Anesthesiology Pain Medicine
DX: Z01.812 Encounter for preprocedural laboratory examination (principal); M79.606 Pain in leg, unspecified; M79.609 Pain in unspecified limb; Z79.01 Long term (current) use of anticoagulants

== ENCOUNTER 2021-08-03 15:16 | Emergency (ER) | payer OTHER ==
[~2021-08-03] VITALS: Wt 90.7 kg
[2021-08-03 15:32] VITALS: BP 109/58
== END 2021-08-03 17:32 | disposition home or self-care (01) ==
LOC: ED 15:16
DX: S00.93XA Contusion of unspecified part of head, initial encounter (principal); W18.39XA Other fall on same level, initial encounter; Y93.89 Activity, other specified; Y92.89 Other specified places as the place of occurrence of the external cause; Y99.8 Other external cause status

== ENCOUNTER → 2021-08-03 | Outpatient (CLI) | payer OTHER ==
[2021-08-03 15:14] LABS: HEMATOCRIT 40.6 % (37.0-47.0); MEAN CELL VOLUME 82.9 fl (81.0-99.0); MEAN CORPUSCULAR HGB 26.9 pg (27.0-31.0); MEAN CORPUSCULAR HGB CONC 32.5 g/dl (33.0-37.0); MEAN PLATELET VOLUME 8.9 fl (9.6-12.3); RED BLOOD COUNT 4.9 10*6/uL (4.10-5.10); RED CELL DISTRI WIDTH 15.9 % (0-14.5); WHITE BLOOD COUNT 15.5 10*3/uL (4.8-10.8)
[2021-08-03 15:31] LABS: CREATININE 1.97 mg/dL (0.55-1.02); TOTAL PROTEIN 7.2 gm/dL (6.4-8.2)
[2021-08-03 16:21] LABS: VITAMIN D, 25-HYDROXY 15.1 ng/mL (30-100)
== END | disposition home or self-care (01) ==
LOC: LAB 14:38
PROVIDERS: ATTEND Family Medicine
DX: E78.00 Pure hypercholesterolemia, unspecified (principal); E11.9 Type 2 diabetes mellitus without complications; I10 Essential (primary) hypertension; E55.9 Vitamin D deficiency, unspecified

== ENCOUNTER 2021-08-17 22:45 | Emergency (ER) | payer OTHER ==
[~2021-08-17] VITALS: Ht 160 cm; Wt 90.7 kg
[~2021-08-17 22:45] MED LIST changes: +AUGMENTIN 875-875 MG PO
[2021-08-17 23:12] LABS: BASO % 0.5 % (0.0-1.0); EOS # 0.1 10*3/uL (0.0-0.4); EOS % 1.6 % (1.0-4.0); HEMATOCRIT 34.7 % (37.0-47.0); LYMPH # 2.8 10*3/uL (1.3-4.4); LYMPH % 34.6 % (27.0-41.0); MEAN CORPUSCULAR HGB 26.7 pg (27.0-31.0); MEAN CORPUSCULAR HGB CONC 31.4 g/dl (33.0-37.0); MONO # 0.5 10*3/uL (0.1-1.0); MONO % 6.6 % (3.0-9.0); NEUT # 4.3 10*3/uL (2.3-7.9); NEUT % 53.8 % (47.0-73.0); PLATELET COUNT AUTOMATED 357 10*3/uL (130-400); RED BLOOD COUNT 4.08 10*6/uL (4.10-5.10); RED CELL DISTRI WIDTH 16.4 % (0-14.5)
[2021-08-17 23:26] LABS: BILIRUBIN Negative (Negative); BLOOD Negative (Negative); CLARITY Clear (Clear); COLOR Yellow (Yellow); GLUCOSE 1+ (Negative); KETONE Negative (Negative); LEUKO ESTERASE Trace (Negative); NITRITE Negative (Negative); PH 7.5 (4.5-8.0); UROBILINOGEN 0.2 E.U./dl (0.0-1.0)
[2021-08-17 23:31] LABS: ALBUMIN 2.1 gm/dl (3.1-4.5); ALKALINE PHOSPHATASE 79 U/L (45-117); BUN 7 mg/dl (7-24); CHLORIDE 102 mmol/L (98-107); CREATININE 0.69 mg/dL (0.55-1.02); LIPASE 119 U/L (73-393); POTASSIUM 3.7 mmol/L (3.5-5.1); SGOT/AST 12 IU/L (3-35); SGPT/ALT 15 U/L (12-78); SODIUM 138 mmol/L (136-145); TOTAL PROTEIN 6.3 gm/dL (6.4-8.2)
[2021-08-17 23:37] LABS: BACTERIA TRACE; EPITHELIAL CELLS 41-50
[2021-08-18 00:56] VITALS: BP 128/68
== END 2021-08-18 01:09 | disposition home or self-care (01) ==
LOC: ED 22:45
PROVIDERS: Internal Medicine
DX: R10.32 Left lower quadrant pain (principal); E83.42 Hypomagnesemia; D64.9 Anemia, unspecified; E44.0 Moderate protein-calorie malnutrition; E11.65 Type 2 diabetes mellitus with hyperglycemia; I10 Essential (primary) hypertension; Z88.8 Allergy status to other drugs, medicaments and biological substances; Z79.899 Other long term (current) drug therapy; Z86.73 Personal history of transient ischemic attack (TIA), and cerebral infarction without residual deficits

== ENCOUNTER → 2021-10-19 | Outpatient (CLI) | payer OTHER ==
[~2021-10-19] MED LIST changes: +REGLAN5 MG PO; +SEPTDS PO
[2021-10-19 09:18] LABS: HEMATOCRIT 46.2 % (37.0-47.0); MEAN CELL VOLUME 85.4 fl (81.0-99.0); MEAN CORPUSCULAR HGB 26.2 pg (27.0-31.0); MEAN CORPUSCULAR HGB CONC 30.7 g/dl (33.0-37.0); MEAN PLATELET VOLUME 9.3 fl (9.6-12.3); RED BLOOD COUNT 5.41 10*6/uL (4.10-5.10); RED CELL DISTRI WIDTH 14.1 % (0-14.5); WHITE BLOOD COUNT 9.3 10*3/uL (4.8-10.8)
[2021-10-19 09:38] LABS: BUN 17 mg/dl (7-24); CHLORIDE 103 mmol/L (98-107); POTASSIUM 4.1 mmol/L (3.5-5.1); SODIUM 138 mmol/L (136-145)
[2021-10-19 09:45] LABS: ALKALINE PHOSPHATASE 90 U/L (45-117); CHOLESTEROL 178 mg/dL (<200); LDL CHOLESTEROL 85 mg/dL (9-159); LIPASE 108 U/L (73-393); SGOT/AST 16 IU/L (3-35); SGPT/ALT 16 U/L (12-78); TOTAL PROTEIN 7.5 gm/dL (6.4-8.2); TRIGLYCERIDES 300 mg/dl (<150)
[2021-10-19 09:51] LABS: FREE T4 1.01 ng/dl (0.76-1.46)
== END | disposition home or self-care (01) ==
LOC: LAB 08:43
PROVIDERS: ATTEND Family Medicine
DX: I10 Essential (primary) hypertension (principal); R10.9 Unspecified abdominal pain; R53.83 Other fatigue; E78.00 Pure hypercholesterolemia, unspecified; E87.6 Hypokalemia; R11.2 Nausea with vomiting, unspecified; E11.9 Type 2 diabetes mellitus without complications

== ENCOUNTER → 2022-04-20 | Outpatient (CLI) | payer OTHER ==
[2022-04-20 08:39] LABS: HEMATOCRIT 42.6 % (37.0-47.0); MEAN CORPUSCULAR HGB 26.1 pg (27.0-31.0); MEAN CORPUSCULAR HGB CONC 30.8 g/dl (33.0-37.0); MEAN PLATELET VOLUME 8.6 fl (9.6-12.3); RED BLOOD COUNT 5.01 10*6/uL (4.10-5.10); RED CELL DISTRI WIDTH 14.8 % (0-14.5); WHITE BLOOD COUNT 9.7 10*3/uL (4.8-10.8)
[2022-04-20 08:55] LABS: ALKALINE PHOSPHATASE 109 U/L (45-117); BUN 17 mg/dl (7-24); CHLORIDE 107 mmol/L (98-107); CHOLESTEROL 201 mg/dL (<200); CPK 152 U/L (26-192); CREATININE 0.77 mg/dL (0.55-1.02); LDL CHOLESTEROL 99 mg/dL (9-159); POTASSIUM 4.5 mmol/L (3.5-5.1); SGOT/AST 12 IU/L (3-35); SGPT/ALT 20 U/L (12-78); SODIUM 140 mmol/L (136-145); TOTAL PROTEIN 7.1 gm/dL (6.4-8.2); TRIGLYCERIDES 305 mg/dl (<150)
== END | disposition home or self-care (01) ==
LOC: LAB 08:19
PROVIDERS: ATTEND Family Medicine
DX: I10 Essential (primary) hypertension (principal); K21.9 Gastro-esophageal reflux disease without esophagitis; E78.00 Pure hypercholesterolemia, unspecified; E11.9 Type 2 diabetes mellitus without complications

== ENCOUNTER → 2022-09-13 | Outpatient (CLI) | payer OTHER | END | disposition home or self-care (01) | LOC: RAD 09:19 | PROVIDERS: ATTEND Family Medicine | DX: M47.816 Spondylosis without myelopathy or radiculopathy, lumbar region (principal); M43.17 Spondylolisthesis, lumbosacral region; M79.604 Pain in right leg; M48.061 Spinal stenosis, lumbar region without neurogenic claudication ==

== ENCOUNTER → 2022-09-29 | Outpatient (CLI) | payer OTHER | END | disposition home or self-care (01) | LOC: RAD 14:38 | PROVIDERS: ATTEND Family Medicine | DX: M25.751 Osteophyte, right hip (principal); M25.752 Osteophyte, left hip ==

== ENCOUNTER → 2022-10-12 | Outpatient (CLI) | payer OTHER ==
[2022-10-12 08:11] LABS: HEMATOCRIT 39.1 % (37.0-47.0); MEAN CELL VOLUME 82.8 fl (81.0-99.0); MEAN CORPUSCULAR HGB 26.1 pg (27.0-31.0); MEAN CORPUSCULAR HGB CONC 31.5 g/dl (33.0-37.0); MEAN PLATELET VOLUME 9.2 fl (9.6-12.3); RED BLOOD COUNT 4.72 10*6/uL (4.10-5.10); RED CELL DISTRI WIDTH 14.9 % (0-14.5)
[2022-10-12 08:13] LABS: ALKALINE PHOSPHATASE 103 U/L (46-116); BUN 16 mg/dl (9-23); CHLORIDE 104 mmol/L (98-107); CHOLESTEROL 187 mg/dL (<200); CPK 125 U/L (34-171); POTASSIUM 4.5 mmol/L (3.4-5.1); SGPT/ALT 7 U/L (10-49); TOTAL PROTEIN 6.2 gm/dL (6.0-8.0); TRIGLYCERIDES 438 mg/dl (<150)
== END | disposition home or self-care (01) ==
LOC: LAB 07:34
PROVIDERS: ATTEND Family Medicine
DX: E11.9 Type 2 diabetes mellitus without complications (principal); I10 Essential (primary) hypertension; K21.9 Gastro-esophageal reflux disease without esophagitis; E55.9 Vitamin D deficiency, unspecified; I63.9 Cerebral infarction, unspecified

== ENCOUNTER → 2022-10-13 | Outpatient (CLI) | payer OTHER | END | disposition home or self-care (01) | LOC: LAB 07:15 | PROVIDERS: ATTEND Family Medicine | DX: E11.9 Type 2 diabetes mellitus without complications (principal); E78.00 Pure hypercholesterolemia, unspecified; E55.9 Vitamin D deficiency, unspecified; K21.9 Gastro-esophageal reflux disease without esophagitis; I10 Essential (primary) hypertension; I63.9 Cerebral infarction, unspecified ==

== ENCOUNTER → 2022-11-29 | Outpatient (CLI) | payer OTHER | END | disposition home or self-care (01) | LOC: RAD 12:41 | PROVIDERS: ATTEND Family Medicine | DX: R05.9 Cough, unspecified (principal); R06.02 Shortness of breath; M47.814 Spondylosis without myelopathy or radiculopathy, thoracic region; M85.80 Other specified disorders of bone density and structure, unspecified site ==

== ENCOUNTER → 2023-01-04 | Outpatient (CLI) | payer OTHER ==
[2023-01-04 08:56] LABS: HEMATOCRIT 42.5 % (37.0-47.0); MEAN CELL VOLUME 83.7 fl (81.0-99.0); MEAN CORPUSCULAR HGB 26.2 pg (27.0-31.0); MEAN CORPUSCULAR HGB CONC 31.3 g/dl (33.0-37.0); MEAN PLATELET VOLUME 8.6 fl (9.6-12.3); RED BLOOD COUNT 5.08 10*6/uL (4.10-5.10); RED CELL DISTRI WIDTH 14.7 % (0-14.5); WHITE BLOOD COUNT 7.6 10*3/uL (4.8-10.8)
[2023-01-04 09:45] LABS: ALKALINE PHOSPHATASE 111 U/L (46-116); BUN 17 mg/dl (9-23); CHLORIDE 99 mmol/L (98-107); CHOLESTEROL 225 mg/dL (<200); CPK 95 U/L (34-171); LDL CHOLESTEROL 108 mg/dL (9-159); POTASSIUM 4.5 mmol/L (3.4-5.1); SGPT/ALT < 7 U/L (10-49); TOTAL PROTEIN 6.8 gm/dL (6.0-8.0); TRIGLYCERIDES 395 mg/dl (<150)
== END | disposition home or self-care (01) ==
LOC: LAB 08:32
PROVIDERS: ATTEND Family Medicine
DX: I10 Essential (primary) hypertension (principal); E78.00 Pure hypercholesterolemia, unspecified; E11.9 Type 2 diabetes mellitus without complications; E55.9 Vitamin D deficiency, unspecified

== ENCOUNTER → 2023-01-31 | Outpatient (CLI) | payer OTHER | END | disposition home or self-care (01) | LOC: MRI 10:00 | PROVIDERS: ATTEND Podiatrist Foot & Ankle Surgery | DX: M76.61 Achilles tendinitis, right leg (principal); M65.9 Synovitis and tenosynovitis, unspecified; M19.071 Primary osteoarthritis, right ankle and foot; M66.871 Spontaneous rupture of other tendons, right ankle and foot; Z98.890 Other specified postprocedural states ==

== ENCOUNTER → 2023-08-29 | Outpatient (CLI) | payer OTHER | END | disposition home or self-care (01) | LOC: RAD 08:59 | PROVIDERS: ATTEND Family Medicine | DX: M85.852 Other specified disorders of bone density and structure, left thigh (principal); M81.0 Age-related osteoporosis without current pathological fracture ==

== ENCOUNTER → 2023-09-12 | Outpatient (CLI) | payer OTHER | END | disposition home or self-care (01) | LOC: CT 09:52 | PROVIDERS: ATTEND Physician Assistant Medical | DX: M51.16 Intervertebral disc disorders with radiculopathy, lumbar region (principal); M48.07 Spinal stenosis, lumbosacral region; M47.26 Other spondylosis with radiculopathy, lumbar region ==

== ENCOUNTER → 2023-09-26 | Outpatient (CLI) | payer OTHER | END | disposition home or self-care (01) | LOC: MAMMO 01:40 | PROVIDERS: ATTEND Family Medicine | DX: Z12.31 Encounter for screening mammogram for malignant neoplasm of breast (principal); N64.9 Disorder of breast, unspecified ==

== ENCOUNTER 2024-01-01 08:46 | Emergency (ER) | payer OTHER ==
[~2024-01-01] VITALS: Ht 157.4 cm; Wt 90.7 kg
[2024-01-01 08:52] VITALS: BP 105/46
[2024-01-01] MEDS ORDERED: SODIUM CHLORIDE 0.9% 1,000 ML IV ONE (09:10)
[2024-01-01] MEDS ORDERED: IOHEXOL 300 MG/ML 100 ML VIAL IV ONE (09:15)
[2024-01-01 09:17] LABS: BASO % 0.3 % (0.0-1.0); EOS # 0.2 10*3/uL (0.0-0.4); EOS % 2.3 % (1.0-4.0); HEMATOCRIT 44.2 % (37.0-47.0); LYMPH # 3.4 10*3/uL (1.3-4.4); LYMPH % 36.2 % (27.0-41.0); MEAN CELL VOLUME 81.3 fl (81.0-99.0); MEAN CORPUSCULAR HGB 25.6 pg (27.0-31.0); MEAN CORPUSCULAR HGB CONC 31.4 g/dl (33.0-37.0); MEAN PLATELET VOLUME 8.7 fl (9.6-12.3); MONO # 0.6 10*3/uL (0.1-1.0); MONO % 5.8 % (3.0-9.0); NEUT # 5.2 10*3/uL (2.3-7.9); NEUT % 55.2 % (47.0-73.0); PLATELET COUNT AUTOMATED 253 10*3/uL (130-400); RED BLOOD COUNT 5.44 10*6/uL (4.10-5.10); RED CELL DISTRI WIDTH 13.6 % (0-14.5); WHITE BLOOD COUNT 9.5 10*3/uL (4.8-10.8)
[2024-01-01 09:40] LABS: ALKALINE PHOSPHATASE 101 U/L (46-116); BUN 12 mg/dl (9-23); CHLORIDE 100 mmol/L (98-107); LIPASE 41 U/L (12-53); POTASSIUM 3.9 mmol/L (3.4-5.1); SGPT/ALT 11 U/L (5-49); TOTAL PROTEIN 6.9 gm/dL (6.0-8.0)
[2024-01-01 09:42] LABS: ACT PARTIAL THROMBO TIME 25.5 SECONDS (20.0-32.1)
[2024-01-01] MEDS ORDERED: MEDROL DOSEPAK4 MG PO (11:23)
[2024-01-01] MEDS ORDERED: Ketorolac Tromethamine 30 MG/ML VIAL IM ONE (11:25)
[2024-01-01] MEDS ORDERED: Dexamethasone Sodium Phospha 20 MG/5 ML VIAL IM ONE (11:25)
== END 2024-01-01 11:32 | disposition home or self-care (01) ==
LOC: ED 08:46
PROVIDERS: Internal Medicine
DX: M54.50 Low back pain, unspecified (principal); E11.9 Type 2 diabetes mellitus without complications; Z79.4 Long term (current) use of insulin; I10 Essential (primary) hypertension; Z88.5 Allergy status to narcotic agent; Z88.8 Allergy status to other drugs, medicaments and biological substances; Z98.890 Other specified postprocedural states; Z90.49 Acquired absence of other specified parts of digestive tract; Z90.710 Acquired absence of both cervix and uterus

== ENCOUNTER 2024-01-16 10:58 | Emergency (ER) | payer OTHER ==
[~2024-01-16] VITALS: Ht 157.4 cm; Wt 90.7 kg
[~2024-01-16 10:58] MED LIST changes: +MEDROL DOSEPAK4 MG PO
[2024-01-16] MEDS ORDERED: Albuterol Sulf/Ipratropium 3 ML VIAL NEB ONE (11:15)
[2024-01-16] MEDS ORDERED: hydrOXYzine pamoate 25 MG CAP PO ONE (11:15)
[2024-01-16 11:37] LABS: BASO % 0.3 % (0.0-1.0); EOS # 0.2 10*3/uL (0.0-0.4); EOS % 2.4 % (1.0-4.0); LYMPH % 42.5 % (27.0-41.0); MEAN CELL VOLUME 82.3 fl (81.0-99.0); MEAN CORPUSCULAR HGB 25.5 pg (27.0-31.0); MEAN PLATELET VOLUME 8.6 fl (9.6-12.3); MONO # 0.5 10*3/uL (0.1-1.0); MONO % 6.8 % (3.0-9.0); NEUT # 3.4 10*3/uL (2.3-7.9); NEUT % 47.9 % (47.0-73.0); PLATELET COUNT AUTOMATED 234 10*3/uL (130-400); RED BLOOD COUNT 4.98 10*6/uL (4.10-5.10); WHITE BLOOD COUNT 7.1 10*3/uL (4.8-10.8)
[2024-01-16 12:00] LABS: BUN 11 mg/dl (9-23); CHLORIDE 101 mmol/L (98-107); POTASSIUM 3.9 mmol/L (3.4-5.1)
[2024-01-16] MEDS ORDERED: MAGNESIUM SULFATE 50 ML IV ONE (12:40)
[2024-01-16] MEDS ORDERED: SODIUM CHLORIDE 0.9% 500 ML IV ONE ×2 (13:10→13:16)
[2024-01-16 13:13] VITALS: BP 124/52
[2024-01-16] MEDS ORDERED: VISTARIL25 MG PO (13:41)
== END 2024-01-16 13:53 | disposition home or self-care (01) ==
LOC: ED 10:58
PROVIDERS: Physician Assistant Medical
DX: F41.9 Anxiety disorder, unspecified (principal); Z20.822 Contact with and (suspected) exposure to COVID-19; E11.9 Type 2 diabetes mellitus without complications; I25.2 Old myocardial infarction; I10 Essential (primary) hypertension; Z79.4 Long term (current) use of insulin; Z88.5 Allergy status to narcotic agent; Z88.8 Allergy status to other drugs, medicaments and biological substances; Z90.49 Acquired absence of other specified parts of digestive tract; Z90.710 Acquired absence of both cervix and uterus; Z98.890 Other specified postprocedural states

== ENCOUNTER → 2024-01-24 | Outpatient (CLI) | payer OTHER ==
[~2024-01-24] MED LIST changes: +VISTARIL25 MG PO
== END | disposition home or self-care (01) ==
LOC: RAD 13:28
PROVIDERS: ATTEND Family Medicine
DX: S92.811A Other fracture of right foot, initial encounter for closed fracture (principal); M25.571 Pain in right ankle and joints of right foot; X58.XXXA Exposure to other specified factors, initial encounter; Y93.89 Activity, other specified; Y92.89 Other specified places as the place of occurrence of the external cause; Y99.8 Other external cause status

== ENCOUNTER → 2024-05-30 | Outpatient (CLI) | payer OTHER ==
[~2024-05-30] MED LIST changes: +ALDACTONE25 MG PO; +ASPIRIN ADULT L81 M2 PO; +LINEZOLID600 MG PO; +LOSARTAN POTASS25 M1 PO; +METOPROLOL SUCC25 M2 PO; +NAPROSYN500 MG PO
== END | disposition home or self-care (01) ==
LOC: MRI 01:04
PROVIDERS: ATTEND Physician Assistant Medical
DX: M47.812 Spondylosis without myelopathy or radiculopathy, cervical region (principal); M50.21 Other cervical disc displacement, high cervical region; M25.78 Osteophyte, vertebrae

== ENCOUNTER → 2024-06-05 | Outpatient (CLI) | payer OTHER | END | disposition home or self-care (01) | LOC: RAD 11:20 | PROVIDERS: ATTEND Family Medicine | DX: R91.8 Other nonspecific abnormal finding of lung field (principal); R06.02 Shortness of breath; J18.9 Pneumonia, unspecified organism; R06.2 Wheezing ==

== ENCOUNTER → 2024-09-06 | Outpatient (CLI) | payer OTHER | END | disposition home or self-care (01) | LOC: RAD 11:48 | PROVIDERS: ATTEND Anesthesiology | DX: M19.011 Primary osteoarthritis, right shoulder (principal); M25.511 Pain in right shoulder ==

== ENCOUNTER → 2024-12-13 | Outpatient (CLI) | payer OTHER | END | disposition home or self-care (01) | LOC: MRI 13:46 | PROVIDERS: ATTEND Anesthesiology | DX: M47.26 Other spondylosis with radiculopathy, lumbar region (principal); M48.061 Spinal stenosis, lumbar region without neurogenic claudication ==

== ENCOUNTER → 2025-01-14 | Outpatient (CLI) | payer OTHER | END | disposition home or self-care (01) | LOC: RAD 14:20 | PROVIDERS: ATTEND Registered Nurse | DX: M25.551 Pain in right hip (principal); M25.552 Pain in left hip ==

== ENCOUNTER 2025-02-10 22:36 | Emergency (ER) | payer OTHER ==
[~2025-02-10] VITALS: Wt 77.1 kg
[2025-02-10 22:48] VITALS: BP 143/81
[2025-02-10] MEDS ORDERED: Ondansetron Hydrochloride 4 MG/2 ML VIAL IV ONE (22:55)
[2025-02-10] MEDS ORDERED: SODIUM CHLORIDE 0.9% 1,000 ML IV ONE (22:55)
[2025-02-10 23:11] LABS: BASO % 0.3 % (0.0-1.0); EOS % 0.2 % (1.0-4.0); HEMATOCRIT 44.1 % (37.0-47.0); MEAN CELL VOLUME 82.9 fl (81.0-99.0); MEAN CORPUSCULAR HGB 26.9 pg (27.0-31.0); MEAN CORPUSCULAR HGB CONC 32.4 g/dl (33.0-37.0); MEAN PLATELET VOLUME 9.1 fl (9.6-12.3); MONO # 0.1 10*3/uL (0.1-1.0); MONO % 0.7 % (3.0-9.0); NEUT # 9.5 10*3/uL (2.3-7.9); NEUT % 86.3 % (47.0-73.0); PLATELET COUNT AUTOMATED 214 10*3/uL (130-400); RED BLOOD COUNT 5.32 10*6/uL (4.10-5.10); RED CELL DISTRI WIDTH 13.3 % (0-14.5); WHITE BLOOD COUNT 11.1 10*3/uL (4.8-10.8)
[2025-02-10 23:37] LABS: ALKALINE PHOSPHATASE 88 U/L (46-116); BUN 24 mg/dl (9-23); CHLORIDE 102 mmol/L (98-107); LIPASE 46 U/L (12-53); POTASSIUM 3.2 mmol/L (3.4-5.1); SGPT/ALT 12 U/L (5-49)
[2025-02-11] MEDS ORDERED: Ondansetron4 MG PO (01:49)
[2025-02-12] MEDS ORDERED: OXYCODONE-ACET1 EAC3 PO (16:40)
[2025-02-12] MEDS ORDERED: OZEMPIC1 MG/0.71 SQ (16:40)
[2025-02-12] MEDS ORDERED: AMITRIPTYLINE25 MG PO (16:41)
[2025-02-12] MEDS ORDERED: SERTRALINE HYDR25 MG PO (16:42)
[2025-02-15] MEDS ORDERED: DERMACINRX LID1 EACH T (16:37)
[2025-02-17] MEDS ORDERED: CIPRO500 MG PO (08:25)
[2025-02-17] MEDS ORDERED: ALPRAZOLAM0.25 M2 PO (08:25)
== END 2025-02-11 01:55 | disposition home or self-care (01) ==
LOC: ED 22:36
PROVIDERS: Internal Medicine
DX: K52.9 Noninfective gastroenteritis and colitis, unspecified (principal); N17.9 Acute kidney failure, unspecified; E87.6 Hypokalemia; R00.0 Tachycardia, unspecified; R11.2 Nausea with vomiting, unspecified; Z88.5 Allergy status to narcotic agent; Z88.6 Allergy status to analgesic agent; Z79.899 Other long term (current) drug therapy; Z79.82 Long term (current) use of aspirin; Z79.4 Long term (current) use of insulin; Z98.890 Other specified postprocedural states; Z90.49 Acquired absence of other specified parts of digestive tract; Z98.84 Bariatric surgery status; Z90.711 Acquired absence of uterus with remaining cervical stump

== ENCOUNTER → 2025-03-25 | Outpatient (CLI) | payer OTHER ==
[~2025-03-25] MED LIST changes: +ALPRAZOLAM0.25 M2 PO; +AMITRIPTYLINE25 MG PO; +DERMACINRX LID1 EACH T; +OXYCODONE-ACET1 EAC3 PO; +OZEMPIC1 MG/0.71 SQ; +Ondansetron4 MG PO; +SERTRALINE HYDR25 MG PO
== END | disposition home or self-care (01) ==
LOC: RAD 12:34
PROVIDERS: ATTEND Family Medicine
DX: M25.59 Pain in other specified joint (principal)

== ENCOUNTER → 2025-06-13 | Outpatient (CLI) | payer OTHER ==
[2025-06-13 10:10] LABS: MEAN CELL VOLUME 80.1 fl (81.0-99.0); MEAN CORPUSCULAR HGB 25.4 pg (27.0-31.0); MEAN PLATELET VOLUME 9.0 fl (9.6-12.3); NUCLEATED RED BLOOD CELL 0.0 % (0.0-0.0); NUCLEATED RED BLOOD CELL 0.0 10*3/uL (0.0-0.0); PLATELET COUNT AUTOMATED 226.0 10*3/uL (130-400); RED CELL DISTRI WIDTH 13.4 % (0-14.5)
[2025-06-13 10:51] LABS: BUN 12 mg/dl (9-23); CPK 75 U/L (34-171); LDL CHOLESTEROL 135 mg/dL (9-159); SGPT/ALT < 7 U/L (5-49)
[2025-06-13 10:53] LABS: VITAMIN D, 25-HYDROXY 28.3 ng/mL (30-100)
== END | disposition home or self-care (01) ==
LOC: LAB 09:51
PROVIDERS: ATTEND Family Medicine
DX: I10 Essential (primary) hypertension (principal); E78.00 Pure hypercholesterolemia, unspecified; E55.9 Vitamin D deficiency, unspecified; E11.9 Type 2 diabetes mellitus without complications; K21.9 Gastro-esophageal reflux disease without esophagitis; R53.83 Other fatigue

== ENCOUNTER → 2025-06-14 | Outpatient (CLI) | payer OTHER ==
[~2025-06-14] MED LIST changes: +IOHEXOL 300 MG/ML 100 ML VIAL IV ONE
== END | disposition home or self-care (01) ==
LOC: CT 06-13 14:00
PROVIDERS: ATTEND Family Medicine
DX: G31.89 Other specified degenerative diseases of nervous system (principal); R42 Dizziness and giddiness; R55 Syncope and collapse; R51.9 Headache, unspecified

== ENCOUNTER 2025-06-18 14:19 | Inpatient (IN) | payer OTHER ==
[~2025-06-18] VITALS: Ht 152.4 cm; Wt 83.0 kg
[~2025-06-18 14:19] MED LIST changes: -IOHEXOL 300 MG/ML 100 ML VIAL IV ONE
[2025-06-18 14:25] VITALS: BP 105/49
[2025-06-18 15:10] LABS: BILIRUBIN Negative (Negative); BLOOD Negative (Negative); CLARITY Clear (Clear); COLOR Yellow (Yellow); KETONE Trace (Negative); LEUKO ESTERASE 1+ (Negative); NITRITE Negative (Negative); PH 5.0 (4.5-8.0); SPECIFIC GRAVITY 1.020 (1.001-1.030); UROBILINOGEN 0.2 E.U./dl (0.0-1.0)
[2025-06-18 15:51] LABS: BACTERIA 1+; RBC 0-2 rbc/hpf (0-2); WBC 16-20 wbc/hpf (0-5)
[2025-06-18 15:52] LABS: MUCOUS 2+
[2025-06-18 15:54] LABS: BASO # 0.1 10*3/uL (0.0-0.1); BASO % 0.5 % (0.0-1.0); EOS # 0.5 10*3/uL (0.0-0.4); EOS % 4.3 % (1.0-4.0); MEAN CELL VOLUME 82.3 fl (81.0-99.0); MEAN CORPUSCULAR HGB 25.7 pg (27.0-31.0); MEAN PLATELET VOLUME 9.3 fl (9.6-12.3); MONO # 0.7 10*3/uL (0.1-1.0); MONO % 6.3 % (3.0-9.0); NEUT # 5.0 10*3/uL (2.3-7.9); NEUT % 47.1 % (47.0-73.0); NUCLEATED RED BLOOD CELL 0.0 % (0.0-0.0); NUCLEATED RED BLOOD CELL 0.0 10*3/uL (0.0-0.0); PLATELET COUNT AUTOMATED 226 10*3/uL (130-400); RED CELL DISTRI WIDTH 13.5 % (0-14.5)
[2025-06-18] MEDS ORDERED: Lactated Ringer's Solution 1,000 ML IV SCH (15:55)
[2025-06-18 16:22] LABS: BUN 24.0 mg/dl (9-23)
[2025-06-18 20:12] LABS: SGPT/ALT < 7 U/L (5-49)
[2025-06-18 20:34] VITALS: BP 146/89
[2025-06-18 20:40] VITALS: BP 145/89
[2025-06-18] MEDS ORDERED: ALPRAZolam 0.25 MG TAB PO PRN (22:05)
[2025-06-18] MEDS ORDERED: Amitriptyline Hydrochloride 25 MG TAB PO SCH (22:10)
[2025-06-19] VITALS: BP 121/32
[2025-06-19] MEDS ORDERED: PREGABALIN 50 MG CAP PO SCH (06:00)
[2025-06-19 06:37] LABS: BASO # 0.0 10*3/uL (0.0-0.1); BASO % 0.4 % (0.0-1.0); EOS # 0.5 10*3/uL (0.0-0.4); EOS % 6.2 % (1.0-4.0); MEAN CELL VOLUME 80.0 fl (81.0-99.0); MEAN CORPUSCULAR HGB 25.5 pg (27.0-31.0); MEAN PLATELET VOLUME 9.5 fl (9.6-12.3); MONO # 0.6 10*3/uL (0.1-1.0); MONO % 7.8 % (3.0-9.0); NEUT # 2.9 10*3/uL (2.3-7.9); NEUT % 40.0 % (47.0-73.0); NUCLEATED RED BLOOD CELL 0.0 % (0.0-0.0); NUCLEATED RED BLOOD CELL 0.0 10*3/uL (0.0-0.0); PLATELET COUNT AUTOMATED 193 10*3/uL (130-400); RED CELL DISTRI WIDTH 13.2 % (0-14.5)
[2025-06-19 06:40] LABS: BUN 17 mg/dl (9-23)
[2025-06-19 08:00] VITALS: BP 130/50
[2025-06-19] MEDS ORDERED: LIDOCAINE 1 EA PATCH T SCH (10:00)
[2025-06-19 12:00] VITALS: BP 136/50
[2025-06-19] MEDS ORDERED: TIZANIDINE HCL4 MG PO (12:16)
[2025-06-19 16:00] VITALS: BP 129/54
[2025-06-19 20:00] VITALS: BP 120/60
[2025-06-19] MEDS ORDERED: Acetaminophen/Oxycodone Hydr 7.5 MG/325 MG TABLET PO PRN (22:55)
[2025-06-20] VITALS (7 sets, daily range): BP systolic 93–130; BP diastolic 44–61
[2025-06-20] MEDS ORDERED: Midodrine Hydrochloride 5 MG TAB PO SCH (16:30)
[2025-06-20] MEDS ORDERED: Ondansetron Hydrochloride 4 MG TAB SL PRN (19:40)
[2025-06-21 05:29] VITALS: BP 104/50
[2025-06-21 09:00] VITALS: BP 112/50
[2025-06-21] MEDS ORDERED: LIDOCAINE 4% PATCH T SCH (10:00)
[2025-06-21 12:00] VITALS: BP 95/50
[2025-06-21] MEDS ORDERED: Midodrine Hydrochloride 5 MG TAB PO SCH ×2 (14:00)
[2025-06-21] MEDS ORDERED: CALCIUM (TUMS) 500MG PO PRN (15:35)
[2025-06-21 16:00] VITALS: BP 123/49
[2025-06-21 20:00] VITALS: BP 127/48
[2025-06-22] VITALS: BP 129/81
[2025-06-22 00:15] VITALS: BP 113/87
[2025-06-22 08:00] VITALS: BP 99/45
[2025-06-22] MEDS ORDERED: Midodrine Hydrochloride 5 MG TAB PO SCH (08:00)
[2025-06-22 09:33] LABS: BASO # 0.0 10*3/uL (0.0-0.1); BASO % 0.2 % (0.0-1.0); EOS # 0.4 10*3/uL (0.0-0.4); EOS % 4.8 % (1.0-4.0); MEAN CELL VOLUME 80.0 fl (81.0-99.0); MEAN CORPUSCULAR HGB 25.6 pg (27.0-31.0); MEAN PLATELET VOLUME 9.1 fl (9.6-12.3); MONO # 0.6 10*3/uL (0.1-1.0); MONO % 7.2 % (3.0-9.0); NEUT # 4.2 10*3/uL (2.3-7.9); NEUT % 51.4 % (47.0-73.0); NUCLEATED RED BLOOD CELL 0.0 % (0.0-0.0); NUCLEATED RED BLOOD CELL 0.0 10*3/uL (0.0-0.0); PLATELET COUNT AUTOMATED 198 10*3/uL (130-400); RED CELL DISTRI WIDTH 13.3 % (0-14.5)
[2025-06-22 09:48] LABS: BUN 20 mg/dl (9-23)
[2025-06-22 12:00] VITALS: BP 103/39
[2025-06-22 16:00] VITALS: BP 116/47
[2025-06-22 20:00] VITALS: BP 137/54
[2025-06-23] VITALS: BP 110/44
[2025-06-23 05:50] VITALS: BP 116/50
[2025-06-23 06:36] LABS: BASO # 0.0 10*3/uL (0.0-0.1); BASO % 0.6 % (0.0-1.0); EOS # 0.3 10*3/uL (0.0-0.4); EOS % 5.0 % (1.0-4.0); MEAN CELL VOLUME 79.7 fl (81.0-99.0); MEAN CORPUSCULAR HGB 25.4 pg (27.0-31.0); MEAN PLATELET VOLUME 9.2 fl (9.6-12.3); MONO # 0.6 10*3/uL (0.1-1.0); MONO % 8.8 % (3.0-9.0); NEUT # 2.4 10*3/uL (2.3-7.9); NEUT % 35.4 % (47.0-73.0); NUCLEATED RED BLOOD CELL 0.0 % (0.0-0.0); NUCLEATED RED BLOOD CELL 0.0 10*3/uL (0.0-0.0); PLATELET COUNT AUTOMATED 211 10*3/uL (130-400); RED CELL DISTRI WIDTH 13.2 % (0-14.5)
[2025-06-23 06:59] LABS: BUN 18 mg/dl (9-23)
[2025-06-23 08:00] VITALS: BP 132/51
[2025-06-23] MEDS ORDERED: SODIUM CHLORIDE 0.9% 1,000 ML IV ONE ×2 (08:55→09:38)
[2025-06-23] MEDS ORDERED: FLUDROCORTISONE ACETATE 0.1 MG TAB PO SCH (10:00)
[2025-06-23 12:00] VITALS: BP 124/50
[2025-06-23 16:00] VITALS: BP 147/52
[2025-06-24] VITALS: BP 169/57
[2025-06-24 08:00] VITALS: BP 126/62
[2025-06-24] MEDS ORDERED: FLUDROCORTISON0.1 MG PO (08:28)
[2025-06-24] MEDS ORDERED: MIDODRINE HCL5 M1 PO ×2 (08:28→08:29)
[2025-06-24 12:00] VITALS: BP 128/48
== END 2025-06-24 15:00 | disposition home health service (06) | DRG 73 ==
LOC: ED 14:19 → EDHOLD 19:52 → 5E 19:52 → 4E 06-22 12:24 → 5E 06-24 07:31
PROVIDERS: Emergency Medicine; Internal Medicine; ADMIT Internal Medicine; ATTEND Internal Medicine
DX: G90.89 Other disorders of autonomic nervous system (principal); N17.0 Acute kidney failure with tubular necrosis; I95.1 Orthostatic hypotension; E86.0 Dehydration; E86.1 Hypovolemia; G89.29 Other chronic pain; E66.9 Obesity, unspecified; E11.9 Type 2 diabetes mellitus without complications; F41.1 Generalized anxiety disorder; Z88.5 Allergy status to narcotic agent; Z88.8 Allergy status to other drugs, medicaments and biological substances; Z90.710 Acquired absence of both cervix and uterus; Z83.3 Family history of diabetes mellitus; Z82.49 Family history of ischemic heart disease and other diseases of the circulatory system; Z86.73 Personal history of transient ischemic attack (TIA), and cerebral infarction without residual deficits; Z90.49 Acquired absence of other specified parts of digestive tract; Z68.36 Body mass index [BMI] 36.0-36.9, adult

== ENCOUNTER → 2025-07-19 | Outpatient (CLI) | payer OTHER ==
[~2025-07-19] MED LIST changes: +FLUDROCORTISON0.1 MG PO; +MIDODRINE HCL5 M1 PO; +TIZANIDINE HCL4 MG PO
[2025-07-19 13:44] LABS: MEAN CELL VOLUME 79.8 fl (81.0-99.0); MEAN CORPUSCULAR HGB 25.4 pg (27.0-31.0); MEAN PLATELET VOLUME 8.8 fl (9.6-12.3); NUCLEATED RED BLOOD CELL 0.0 % (0.0-0.0); NUCLEATED RED BLOOD CELL 0.0 10*3/uL (0.0-0.0); PLATELET COUNT AUTOMATED 220.0 10*3/uL (130-400); RED CELL DISTRI WIDTH 13.3 % (0-14.5)
[2025-07-19 14:31] LABS: BUN 17 mg/dl (9-23); CPK 112 U/L (34-171); LDL CHOLESTEROL 127 mg/dL (9-159); SGPT/ALT 9 U/L (5-49)
== END | disposition home or self-care (01) ==
LOC: LAB 12:57
PROVIDERS: ATTEND Family Medicine
DX: I12.9 Hypertensive chronic kidney disease with stage 1 through stage 4 chronic kidney disease, or unspecified chronic kidney disease (principal); N18.9 Chronic kidney disease, unspecified; E11.22 Type 2 diabetes mellitus with diabetic chronic kidney disease; K21.9 Gastro-esophageal reflux disease without esophagitis